=== PATIENT | female | born 1950 | race Caucasian/White ===

== ENCOUNTER 2016-11-01 12:55 | Observation (INO) | payer MEDICARE, BC ==
[2016-11-01] MEDS ORDERED: ASPIRIN 81 MG CHEW PO STA (13:59)
--- NOTE | 2016-11-01 14:45 | ED ---
General Adult HPI - General Chief complaint: Arrhythmia/Palpitations Stated complaint: Palpitations, ANJU Time Seen by Provider: 11/01/16 13:58 Source: patient, family, RN notes reviewed, old records reviewed Mode of arrival: wheelchair Limitations: no limitations - History of Present Illness Initial comments: 66-year-old female presenting for chest pain and palpitations. Patient states that she has had intermittent pains in her chest for the past few weeks. She' ll states she has chronic recurrence of a "fluttering" sensation. She states yesterday she was getting out of her truck and felt something pop in her chest and since then has had more frequent pain. She's also had worsening fluttering over the past 24 hours. She does have a history of CABG and 1999. She states that she had a stress test about 2 years ago which was normal. She does take a daily aspirin per day. She is not on what thinners. Left shortness of breath associated with chest pain. - Related Data Home Medications Medication Instructions Recorded Confirmed ALPRAZolam [Xanax] 0.25 mg PO TID PRN 05/08/14 11/01/16 Aspirin 325 mg PO HS 05/08/14 11/01/16 Atorvastatin Calcium [Lipitor] 40 mg PO HS 05/08/14 11/01/16 Colesevelam [Welchol] 1,875 mg PO BID 05/08/14 11/01/16 buPROPion HCL [Wellbutrin XL] 300 mg PO DAILY 05/08/14 11/01/16 Lisinopril-Hctz 20-12.5 mg 1 tab PO HS 11/01/16 11/01/16 [Zestoretic 20-12.5] Metoprolol Tartrate [Lopressor] 100 mg PO DAILY 11/01/16 11/01/16 Allergies Allergy/AdvReac Type Severity Reaction Status Date / Time No Known Allergies Allergy Verified 11/01/16 14:17 Review of Systems ROS Statement: Those systems with pertinent positive or pertinent negative responses have been documented in the HPI. Constitutional: No fevers. No chills. No change in appetite. No unexpected weight loss. Eyes: No visual changes. No eye pain. No sensitivity to light. HENT: No sinus pressure. No ear pain. No hearing changes. No epistaxis. No sore throat. Respiratory: No cough. Positive SOB. No wheezing. Cardiovascular: Positive chest pain. Positive palpitations. No lower extremity edema. Abdomen: No abdominal pain. No nausea. No vomiting. No diarrhea. Genitourinary: No dysuria. No hematuria. No difficulty urinating. No flank pain. Musculoskeletal: No injury. No back pain. No myalgias. Skin: No rash. No lesions. No lacerations. Neuro: No gross strength deficits. No LOC. No seizures. No headache. Psych: No confusion. No memory changes. No anxiety/depression. ROS Other: All systems not noted in ROS Statement are negative. Past Medical History Past Medical History: Coronary Artery Disease (CAD), Chest Pain / Angina, Hyperlipidemia, Hypertension, Osteoarthritis (OA) Additional Past Medical History / Comment(s): Past medical history significant for coronary artery disease as above also history of hypertension hyperlipidemia and osteoarthritis History of Any Multi-Drug Resistant Organisms: None Reported Past Surgical History: Back Surgery, Coronary Bypass/CABG, Heart Catheterization , Hysterectomy, Orthopedic Surgery Additional Past Surgical History / Comment(s): carpal tunnel. Bilateral total knee arthroplasty (left x2). Heart cath but no stent Past Anesthesia/Blood Transfusion Reactions: No Reported Reaction Past Psychological History: No Psychological Hx Reported, Depression Smoking Status: Former smoker Past Alcohol Use History: None Reported Past Drug Use History: None Reported - Past Family History Mother Family Medical History: Diabetes Mellitus Father Family Medical History: Myocardial Infarction ([place]) Additional Family Medical History / Comment(s): at 48 large hx of cardiac problems General Exam - General Exam Comments Initial Comments: General: Awake and Alert. No acute distress. Does not appear acutely ill. Obese. Eyes: KATHIE, EOM intact. No nystagmus. No scleral icterus. HENT: Atraumatic, normocephalic. Mucous membranes moist. Trachea midline. Neck: The neck is supple, there is no tenderness or JVD. Cardiovascular: Regular rate and rhythm. No murmur, rub, or gallop is appreciated. Distal pulses intact. Trace edema B/L LE. Respiratory: Lungs are clear to auscultation bilaterally. No wheezes, rales, rhonchi. No respiratory distress. Gastrointestinal: Soft, Nontender. No rebound or guarding. Non-distended. No masses or organomegaly noted. No CVA tenderness. Musculoskeletal: No tenderness. Normal ROM. No gross deformity. No strength deficits. Neurological: A&Ox3. CN II-XII grossly intact, There are no obvious motor or sensory deficits. Coordination appears grossly intact. Speech is normal. Skin: Skin is warm and dry and no rashes or lesions are noted. Psychiatric: Cooperative, appropriate mood & affect, normal judgment. Limitations: no limitations Course Vital Signs 11/01/16 11/01/16 13:05 16:42 Temperature 98.0 F 98.1 F Pulse Rate 68 60 Respiratory 18 16 Rate Blood Pressure 117/62 130/71 O2 Sat by Pulse 96 98 Oximetry EKG Findings - EKG Comments: EKG Findings:: 14:31. Normal sinus rhythm. Rate 63. UT 208. QRS 92. QT/QTC 418/427. Left axis deviation. Incomplete right bundle branch block. LVH. Nonspecific ST and T-wave abnormalities. Abnormal EKG. Similar to prior EKG 05/08/14. Medical Decision Making - Medical Decision Making 66-year-old female with history of multivessel CABG presenting for chest pain and palpitations. Patient without active chest pain on initial examination. Vitals are stable. Concern for possible ACS. Workup ordered. Patient took a full aspirin earlier today. Lab workup showing stable CBC, stable BMP. Initial troponin is negative. EKG does have significant changes concerning for possible cardiac ischemia although they are similar to prior EKG. Patient and were updated on labs and imaging. Discussed significant risk factors and recommendation for admission for further evaluation and cardiac consultation. They're agreeable to this. I called and discussed with Dr. Davies who is agreeable with plan for admission. 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 - Lab Data Result diagrams: 11/01/16 14:50 11/01/16 14:50 Lab Results 11/01/16 11/01/16 11/01/16 Range/Units 14:50 14:50 14:50 WBC 6.4 (3.8-10.6) k/uL RBC 4.37 (3.80-5.40) m/uL Hgb 13.6 (11.4-16.0) gm/dL Hct 40.7 (34.0-46.0) % MCV 93.1 (80.0-100.0) fL MCH 31.2 (25.0-35.0) pg MCHC 33.5 (31.0-37.0) g/dL RDW 12.5 (11.5-15.5) % Plt Count 240 (150-450) k/uL Neutrophils % 72 % Lymphocytes % 19 % Monocytes % 5 % Eosinophils % 2 % Basophils % 0 % Neutrophils # 4.6 (1.3-7.7) k/uL Lymphocytes # 1.2 (1.0-4.8) k/uL Monocytes # 0.3 (0-1.0) k/uL Eosinophils # 0.1 (0-0.7) k/uL Basophils # 0.0 (0-0.2) k/uL Sodium 138 (137-145) mmol/L Potassium 4.3 (3.5-5.1) mmol/L Chloride 106 (98-107) mmol/L Carbon Dioxide 25 (22-30) mmol/L Anion Gap 7 mmol/L BUN 19 H (7-17) mg/dL Creatinine 0.70 (0.52-1.04) mg/dL Est GFR (MDRD) Af Amer >60 (>60 ml/min/1.73 sqM) Est GFR (MDRD) Non-Af >60 (>60 ml/min/1.73 sqM) Glucose 136 H (74-99) mg/dL Calcium 9.5 (8.4-10.2) mg/dL Magnesium 1.8 (1.6-2.3) mg/dL CK-MB (CK-2) 0.6 (0.0-2.4) ng/mL Troponin I <0.012 (0.000-0.034) ng/mL - EKG Data -: EKG Interpreted by Or EKG shows normal: sinus rhythm Rate: normal When compared to previous EKG there are: no significant change Interpretation: no acute changes - Radiology Data Radiology results: report reviewed, image reviewed Disposition Clinical Impression: Chest pain, Palpitations, Hx of CABG, SOB (shortness of breath), Abnormal EKG Disposition: ADMITTED IP TO THIS HOSP Condition: Stable Referrals: Ed Healy MD [Primary Care Provider] - 1-2 days Decision to Admit Reason: Admit from EC
[2016-11-01 15:13] LABS: Basophils % (A) 0 %; CHCM 34.5; Eosinophils # (A) 0.1 k/uL (0-0.7); Eosinophils % (A) 2 %; HCT 40.7 % (34.0-46.0); HDW 2.61; HGB 13.6 gm/dL (11.4-16.0); Luc # (Auto) 0.11; Luc % (Auto) 2; Lymphocytes # (A) 1.2 k/uL (1.0-4.8); Lymphocytes % (A) 19 %; MCH 31.2 pg (25.0-35.0); MCHC 33.5 g/dL (31.0-37.0); MCV 93.1 fL (80.0-100.0); Mean Platelet Volume 7.1; Monocytes # (A) 0.3 k/uL (0-1.0); Monocytes % (A) 5 %; Neutrophils # (A) 4.6 k/uL (1.3-7.7); Neutrophils % (A) 72 %; RBC 4.37 m/uL (3.80-5.40); RDW 12.5 % (11.5-15.5); WBC 6.4 k/uL (3.8-10.6); WBC (Perox) 6.64
[2016-11-01 15:16] LABS: Anion Gap 7 mmol/L; Blood Urea Nitrogen 19 mg/dL (7-17); Calcium 9.5 mg/dL (8.4-10.2); Carbon Dioxide 25 mmol/L (22-30); Chloride 106 mmol/L (98-107); Glucose 136 mg/dL (74-99); Magnesium 1.8 mg/dL (1.6-2.3); Non-African American GFR(MDRD) >60 (>60 ml/min/1.73 sqM); Potassium 4.3 mmol/L (3.5-5.1); Sodium 138 mmol/L (137-145)
--- NOTE | 2016-11-01 15:18 | XR ---
EXAMINATION TYPE: XR chest 2V DATE OF EXAM: 11/01/2016 3:16 PM COMPARISON: May 08, 2014 HISTORY: Shortness of breath TECHNIQUE: Frontal and lateral views of the chest are obtained. FINDINGS: Scattered senescent parenchymal changes noted. Hyperinflation compatible with COPD. No evidence for infiltrate. No evidence for atelectasis. Heart size is stable. Mediastinal structures are stable and grossly unremarkable. No evidence for hilar prominence. Degenerative changes dorsal spine. IMPRESSION: 1. No evidence for acute pulmonary disease.
[2016-11-01 15:41] LABS: Creatine Kinase MB 0.6 ng/mL (0.0-2.4); Troponin I <0.012 ng/mL (0.000-0.034)
[2016-11-01] MEDS ORDERED: NITROGLYCERIN SL TABS 0.4 MG TAB SUBLINGUAL PRN (16:44)
[2016-11-01 21:50] LABS: Creatine Kinase 56 U/L (30-135)
[2016-11-01 22:03] LABS: Creatine Kinase MB 0.6 ng/mL (0.0-2.4); Troponin I <0.012 ng/mL (0.000-0.034)
[2016-11-01] MEDS ORDERED: LISINOPRIL-HCTZ 20-12.5 MG 1 EACH TAB PO SCH (23:30)
[2016-11-01] MEDS ORDERED: ATORVASTATIN 40 MG TAB PO SCH (23:30)
[2016-11-02] MEDS: HEPARIN SODIUM,PORCINE 5,000 UNIT/ML 1 ML VIAL SQ SCH ×2 (00:30→10:11)
[2016-11-02] MEDS: COLESEVELAM 625 MG TAB PO SCH ×2 (00:30→10:11)
[2016-11-02] MEDS: ALPRAZolam 0.25 MG TAB PO PRN ×2 (00:35→10:21)
[2016-11-02 03:25] LABS: Cholesterol 172 mg/dL (<200); HDL Cholesterol 55 mg/dL (40-60); Triglycerides 184 mg/dL (<150)
[2016-11-02 03:33] LABS: Creatine Kinase 52 U/L (30-135)
[2016-11-02 03:46] LABS: Creatine Kinase MB 0.6 ng/mL (0.0-2.4); Troponin I <0.012 ng/mL (0.000-0.034)
[2016-11-02 06:41] VITALS: PULSE 67
[2016-11-02] MEDS ORDERED: ASPIRIN 325 MG TAB PO SCH ×2 (09:00→21:00)
[2016-11-02] MEDS ORDERED: buPROPion XL 300 MG TAB.ER.24H PO SCH (09:00)
[2016-11-02] MEDS ORDERED: METOPROLOL TARTRATE 50 MG TAB PO SCH (09:00)
[2016-11-02 09:30] LABS: Basophils % (A) 1 %; CH 31.4; Eosinophils # (A) 0.2 k/uL (0-0.7); Eosinophils % (A) 3 %; HCT 39.5 % (34.0-46.0); HDW 2.46; HGB 13.2 gm/dL (11.4-16.0); Luc # (Auto) 0.13; Luc % (Auto) 2; Lymphocytes # (A) 2.4 k/uL (1.0-4.8); Lymphocytes % (A) 30 %; MCHC 33.4 g/dL (31.0-37.0); MCV 95.7 fL (80.0-100.0); Monocytes # (A) 0.3 k/uL (0-1.0); Monocytes % (A) 4 %; Neutrophils # (A) 4.7 k/uL (1.3-7.7); Neutrophils % (A) 60 %; RBC 4.13 m/uL (3.80-5.40); RDW 12.4 % (11.5-15.5); WBC 7.8 k/uL (3.8-10.6); WBC (Perox) 8.11
[2016-11-02 09:36] LABS: ALT 37 U/L (9-52); AST 18 U/L (14-36); Alkaline Phosphatase 74 U/L (38-126); Anion Gap 9 mmol/L; Blood Urea Nitrogen 18 mg/dL (7-17); Calcium 9.4 mg/dL (8.4-10.2); Carbon Dioxide 23 mmol/L (22-30); Chloride 107 mmol/L (98-107); Glucose 94 mg/dL (74-99); Non-African American GFR(MDRD) >60 (>60 ml/min/1.73 sqM); Potassium 3.6 mmol/L (3.5-5.1); Sodium 139 mmol/L (137-145); Total Bilirubin 0.5 mg/dL (0.2-1.3); Total Protein 6.1 g/dL (6.3-8.2)
--- NOTE | 2016-11-02 10:03 | CONS ---
DATE OF CONSULTATION: Dali Luong is a patient of Dr. Mildred Torres. She is a 66-year-old female who came in because she had fluttering in the neck once again. She has had this fluttering sensation in her neck for a long time. What scares her is that she feels that her heart is stopping at that time. She has no chest discomfort. She has not lost consciousness. Past history is significant for coronary artery disease. She had a 2 vessel bypass surgery several years back. Subsequently she had a coronary angiogram at [facility] and the vein graft to the second diagonal branch was totally occluded, the HOOD graft to the LAD was patent. The 2-D echo in the past has been normal. Her EKG, however, is abnormal and has been so even prior to surgery. I reviewed her ECGs from 2013 and from today. Her ECG shows sinus rhythm with normal [place] interval, with deep T wave inversions of the precordial leads. Past history of coronary artery disease, coronary artery bypass grafting, dyslipidemia and an abnormal ECG at baseline and recurrent palpitations for several years now but intermittent and she may go for months without palpitations. REVIEW OF SYSTEMS: No fever, chills, or rigors. No cough or expectoration. No nausea, vomiting, or diarrhea. No hematuria or dysuria. No strokes or seizures. No skin lesions or musculoskeletal complaints. Medications are reviewed and include metoprolol, lisinopril, atorvastatin, aspirin and Wellbutrin. ECG was reviewed. The QT interval is less than 460 ms. Labs are reviewed. Cardiac enzymes are normal. Hemoglobin is normal. Electrolytes are normal. Renal function is normal. On examination, her blood pressure is 112/65 mmHg, heart rate is in the 60s. Head and neck examination is normal. Heart sounds are normal. Lungs are clear on auscultation. Extremities are warm. No edema. IMPRESSION: 1. Recurrent fluttering that she feels in the neck and she feels that her heart is stopping. 2. Known coronary artery disease with coronary artery bypass grafting; HOOD to the LAD is patent, SVG to the diagonal is occluded. 3. Dyslipidemia. 4. Abnormal ECG with T wave inversions at baseline. Apparently, this was present even before her bypass surgery. SUGGEST: A 30-day event monitor and follow with Dr. Mildred Torres and follow up with me after the period of event monitoring.
--- NOTE | 2016-11-02 10:49 | P.HPIM ---
History of Present Illness H&P Date: 11/02/16 Chief Complaint: Heart fluttering This is a 66-year-old female with a known past medical history of coronary artery disease with previous CABG in 1998. She also has a history of hyperlipidemia and hypertension. She was a former smoker as well as some history of depression and anxiety. Last stress test was about 2 years ago was reportedly normal. Patient presents to the emergency room with complaints of heart fluttering and palpitations. Symptoms started yesterday. And continued to progress throughout the day and lasting longer in duration. She became concerned and presented to the emergency room for further evaluation and treatment. Cardiology was consulted. She was admitted to the observation floor. EKG had shown a normal sinus rhythm with an incomplete right bundle- branch block with ST and T-wave abnormality. Troponins were negative 3 sets. Chest x-ray was negative. Patient denies any chest pain. She does admit to having some shortness of breath during the fluttering episode. Denies any diaphoresis. Denies any nausea or vomiting bowel movement changes or urinary symptoms. Denies any fevers chills or sweats. Patient did try to cough to help alleviate the symptoms with no improvement. Patient does feel symptoms up into her neck. Also note that the patient has been under more stress. She did take a Xanax prior to coming to the ER and felt that it did help alleviate some of her symptoms. 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 History of Any Multi-Drug Resistant Organisms: None Reported Past Surgical History: Back Surgery, Coronary Bypass/CABG, Heart Catheterization , Hysterectomy, Orthopedic Surgery, Tonsillectomy Additional Past Surgical History / Comment(s): carpal tunnel, 2 VESSEL CABG 1998. Bilateral total knee arthroplasty (left DONE TWICE). Heart cath but no stent, 1 PERMANENT DENTAL IMPLANT/ Past Anesthesia/Blood Transfusion Reactions: No Reported Reaction Past Psychological History: Anxiety, Depression Additional Psychological History / Comment(s): STATES CURRENTLY HAS SOME MILD DEPRESSION (HATES WINTER AND HAS "BOARDERLINE VIT D LEVEL"), DENIES NAY THOUGHTS OF HARMING SELF. Smoking Status: Former smoker Past Alcohol Use History: None Reported Additional Past Alcohol Use History / Comment(s): STARTED SMOKING AT AGE 14, 1PPD, QUIT 1996 Past Drug Use History: None Reported - Past Family History Mother Family Medical History: Diabetes Mellitus Father Family Medical History: Myocardial Infarction ([place]) Additional Family Medical History / Comment(s): DAD at 48 large hx of cardiac problems .DADS [place] AT AGE 50 FROM [place] AND HIS FATHER AT AGE 36 FROM [place]. Brother(s) Family Medical History: Coronary Artery Disease (CAD) Additional Family Medical History / Comment(s): CABG Sister(s) Family Medical History: Coronary Artery Disease (CAD) Additional Family Medical History / Comment(s): QUAD CABG THEN WENT ON TO HAVE TOTAL OF 7 STENTS AFTERWARDS. Medications and Allergies Home Medications Medication Instructions Recorded Confirmed Type ALPRAZolam [Xanax] 0.25 mg PO TID PRN 05/08/14 11/01/16 History Aspirin 325 mg PO HS 05/08/14 11/01/16 History Atorvastatin Calcium [Lipitor] 40 mg PO HS 05/08/14 11/01/16 History Colesevelam [Welchol] 1,875 mg PO BID 05/08/14 11/01/16 History buPROPion HCL [Wellbutrin XL] 300 mg PO DAILY 05/08/14 11/01/16 History Lisinopril-Hctz 20-12.5 mg 1 tab PO HS 11/01/16 11/01/16 History [Zestoretic 20-12.5] Metoprolol Tartrate [Lopressor] 100 mg PO DAILY 11/01/16 11/01/16 History Allergies Allergy/AdvReac Type Severity Reaction Status Date / Time No Known Allergies Allergy Verified 11/01/16 14:17 Physical Exam Vitals: Vital Signs Temp Pulse Pulse Pulse Resp BP BP 11/02/16 07:55 98.1 F 67 18 112/65 11/02/16 04:00 67 65 16 110/64 11/02/16 00:00 65 16 120/62 11/01/16 21:55 18 11/01/16 21:10 98.2 F 70 16 144/95 11/01/16 19:52 97.6 F 63 18 140/88 11/01/16 18:45 97.8 F 56 L 16 150/82 11/01/16 18:04 98.0 F 61 16 132/76 Pulse Ox 11/02/16 07:55 96 11/02/16 04:00 94 L 11/02/16 00:00 95 11/01/16 21:55 11/01/16 21:10 92 L 11/01/16 19:52 99 11/01/16 18:45 98 11/01/16 18:04 96 Intake and Output 11/01/16 11/02/16 11/02/16 22:59 06:59 14:59 Intake Total 200 150 Balance 200 150 Intake: Oral 200 150 Other: Voiding Method Toilet Toilet # Voids 1 2 Head normocephalic Neck supple Lungs clear to auscultation bilaterally no wheezing or crackles Heart regular rate and rhythm S1-S2, no rub or gallop Abdomen is soft nontender nondistended positive bowel sounds no hepatosplenomegaly Extremities no edema Neuro alert and orientated to 3 Results CBC & Chem 7: 11/02/16 02:49 11/02/16 02:49 Labs: Abnormal Lab Results - Last 24 Hours (Table) 11/02/16 11/02/16 Range/Units 02:49 02:49 BUN 18 H (7-17) mg/dL Total Protein 6.1 L (6.3-8.2) g/dL Triglycerides 184 H (<150) mg/dL Assessment and Plan Plan: 1. Heart fluttering: I telemetry she's been in sinus rhythm. EKG had shown a normal sinus rhythm with some ST changes and T-wave inversion. Evaluated by cardiology. The recommending a 30 day event monitor. Patient's symptoms have resolved. Check TSH level. Electrolytes are normal. Troponins are negative 3 sets 2. History of generalized anxiety and depression continue with the Xanax as needed and the Wellbutrin 3. Essential hypertension: Continue current blood pressure medications. Blood pressure stable 4. Hyperlipidemia continue the WelChol DVT prophylaxis subcu heparin Anticipate discharge later this afternoon Time with Patient: Greater than 30 (Greater than 50% of the total time spent in counseling and coordination of care.I performed an examination of the patient and discussed their management with the physician Light Bulb Replacer. I have reviewed the Physician Light Bulb Replacer's notes and agree with the documented findings and plan of care)
[2016-11-02 12:14] VITALS: BP 135/76; RESP 16; TEMP 99.2
--- NOTE | 2016-11-02 13:19 | P.DS ---
Providers Date of admission: 11/01/16 16:47 Expected date of discharge: 11/02/16 Attending physician: Olya Davies Consults: Dr. Mirza Primary care physician: Ed Johnson [facility] Course: Discharge diagnosis 1. Heart fluttering and palpitations: telemetry she's been in sinus rhythm. EKG had shown a normal sinus rhythm with some ST changes and T-wave inversion. Evaluated by cardiology. The recommending a 30 day event monitor. Patient's symptoms have resolved. TSH level within normal limits. Electrolytes are normal. Troponins are negative 3 sets 2. History of generalized anxiety and depression continue with the Xanax as needed and the Wellbutrin 3. Essential hypertension: Continue current blood pressure medications. Blood pressure stable 4. Hyperlipidemia continue the [facility] course This is a 66-year-old female with a known past medical history of coronary artery disease with previous CABG in 1998. She also has a history of hyperlipidemia and hypertension. She was a former smoker as well as some history of depression and anxiety. Last stress test was about 2 years ago was reportedly normal. Patient presents to the emergency room with complaints of heart fluttering and palpitations. Symptoms started yesterday. And continued to progress throughout the day and lasting longer in duration. She became concerned and presented to the emergency room for further evaluation and treatment. Cardiology was consulted. She was admitted to the observation floor. EKG had shown a normal sinus rhythm with an incomplete right bundle- branch block with ST and T-wave abnormality. Troponins were negative 3 sets. Chest x-ray was negative. EKG reviewed by cardiology and they felt that it was similar to previous EKG. Patient will be discharged today. She'll be set up with a 30 day event monitor and follow up with cardiology outpatient. Patient has been asymptomatic since the emergency room. TSH level in the left lites are within normal range. Patient is stable for discharge and his been cleared by cardiology for discharge. Please refer to chart for further details. Patient Condition at Discharge: Stable Plan - Discharge Summary Discharge Medication List ALPRAZolam [Xanax] 0.25 mg PO TID PRN 05/08/14 [History] Aspirin 325 mg PO HS 05/08/14 [History] Atorvastatin Calcium [Lipitor] 40 mg PO HS 05/08/14 [History] Colesevelam [Welchol] 1,875 mg PO BID 05/08/14 [History] buPROPion HCL [Wellbutrin XL] 300 mg PO DAILY 05/08/14 [History] Lisinopril-Hctz 20-12.5 mg [Zestoretic 20-12.5] 1 tab PO HS 11/01/16 [History] Metoprolol Tartrate [Lopressor] 100 mg PO DAILY 11/01/16 [History] Follow up Appointment(s)/Referral(s): Jon Mirza MD [STAFF PHYSICIAN] - 6 Weeks Chavez Torres MD [STAFF PHYSICIAN] - 1 Week Ed Healy MD [Primary Care Provider] - 1 Week Activity/Diet/Wound Care/Special Instructions: Diet: cardiac Activity: as tolerated Discharge Disposition: HOME SELF-CARE
== END 2016-11-02 13:35 | disposition home or self-care (01) ==
LOC: EC 12:55 → 3OBS 16:47
PROVIDERS: ADMIT Internal Medicine; ATTEND Internal Medicine
DX: I49.8 Other specified cardiac arrhythmias (principal); R00.2 Palpitations; F41.1 Generalized anxiety disorder; F32.9 Major depressive disorder, single episode, unspecified; I10 Essential (primary) hypertension; I25.10 Atherosclerotic heart disease of native coronary artery without angina pectoris; E78.5 Hyperlipidemia, unspecified; I45.10 Unspecified right bundle-branch block; Z79.899 Other long term (current) drug therapy; Z87.891 Personal history of nicotine dependence; Z95.1 Presence of aortocoronary bypass graft; Z79.82 Long term (current) use of aspirin; R06.02 Shortness of breath
CPT/HCPCS: 93005; 80061; 80053; 80048; 36415; 84443; 82550 ×2; 82553 ×2; 83735; 84484 ×2; 85025 ×2; 71020; 99285; G0378 ×2; J1644; 96372

== ENCOUNTER → 2016-11-02 | Outpatient (CLI) | payer MEDICARE, BC ==
--- NOTE | 2016-11-02 15:05 | MR ---
EXAMINATION TYPE: MR shoulder RT wo con DATE OF EXAM: 11/02/2016 2:17 PM COMPARISON: NONE HISTORY: Pain in right shoulder. TECHNIQUE: Multiplanar, multisequence imaging of the right shoulder is performed without contrast. FINDINGS: Rotator Cuff: There is a 1.2 cm partial through thickness tear of the supraspinatus tendon near the i nsertion involving the anterior fibers. No retraction. There is increased signal at the insertion of the infraspinatus tendon along the undersurface compati ble with a partial non through thickness tear. Acromioclavicular Joint: Hypertrophic change of the AC joint is noted. There is mild mass effect upon the rotator cuff compatible with impingement. Glenohumeral Joint: There is a small amount of fluid within the glenohumeral joint. Inferior glenohum eral ligament is intact. Narrowing of the joint space noted. No erosive changes. Labrum: There is abnormal signal throughout the superior labrum compatible with tear. Biceps Tendon: Biceps tendon is situated within the bicipital groove. There is poor visualization of the intracapsular portion of the biceps tendon which demonstrates increased signal. Findings suspicio us for partial tear near the biceps anchor and intracapsular portion. Bone marrow signal: No focal abnormal marrow signal is appreciated. Other: Rounded area of abnormal signal within the glenohumeral joint compatible with loose body. IMPRESSION: 1. Partial through thickness tear distal margin supraspinatus tendon near the insertion measuring nelly roximately 1.2 cm. No retraction. 2. Tendinopathy and partial intrasubstance tear insertion infraspinatus tendon no retraction. 3. SLAP tear. 4. abnormal signal and thickening of the intracapsular portion of the biceps tendon extending the bic eps anchor compatible with partial tear. No retraction. 5. There is osteoarthritis of the glenohumeral joint with suspected loose body within the joint space and loss of cartilage.
== END | disposition home or self-care (01) ==
LOC: RADMRIMAIN 13:36
PROVIDERS: ATTEND Orthopaedic Surgery
DX: M75.111 Incomplete rotator cuff tear or rupture of right shoulder, not specified as traumatic (principal); S46.811A Strain of other muscles, fascia and tendons at shoulder and upper arm level, right arm, initial encounter; S43.431A Superior glenoid labrum lesion of right shoulder, initial encounter; M19.011 Primary osteoarthritis, right shoulder; M67.811 Other specified disorders of synovium, right shoulder

== ENCOUNTER → 2017-03-06 | Outpatient (CLI) | payer MEDICARE, BC ==
--- NOTE | 2017-03-07 13:53 | MM ---
Reason for exam: screening (asymptomatic). Last mammogram was performed 1 year and 1 month ago. History: Patient is postmenopausal. Took estrogen for 3 years. Physical Findings: A clinical breast exam by your physician is recommended on an annual basis and results should be correlated with mammographic findings. MG 3D Screening Mammo W/Cad Bilateral CC and MLO view(s) were taken. Prior study comparison: January 30, 2016, bilateral MG 3d screening mammo w/cad. January 04, 2014, bilateral digital screening mammo w/CAD. The breast tissue is heterogeneously dense. This may lower the sensitivity of mammography. Benign calcifications. There is no discrete abnormality. No significant changes when compared with prior studies. ASSESSMENT: Benign, BI-RAD 2 RECOMMENDATION: Routine screening mammogram of both breasts in 1 year.
== END | disposition home or self-care (01) ==
LOC: RADMAMWWP 14:49
PROVIDERS: ATTEND Internal Medicine
DX: Z12.31 Encounter for screening mammogram for malignant neoplasm of breast (principal)
CPT/HCPCS: 77063; G0202

== ENCOUNTER → 2017-07-12 | Day surgery (SDC) | payer MEDICARE, BC ==
[2017-07-10 14:58] VITALS: BMI 30.7
[~2017-07-12] MED LIST: LACTATED RINGERS 1,000 ML IV SCH; LIDOCAINE 1% 20 ML VIAL (10MG/ML) FOR IV START INTRADERMA ONE; LIDOCAINE 1% INJ 10MG/ML (20 ML MDV) ONE; PROPOFOL 10 MG/ML 20 ML VIAL IV ONE
[2017-07-12 12:01] VITALS: RESP 16; TEMP 97.3
--- NOTE | 2017-07-12 13:37 | P.PCN ---
Date of Procedure: 07/12/17 Procedure(s) Performed: BRIEF HISTORY: Patient is a 66-year-old pleasant white female, scheduled for an elective colonoscopy as a part of evaluation of chronic diarrhea for the last 6 months duration. She been having bowel movements anywhere from 4-5 a day which are loose to watery in consistency but last week she noticed small streaks of bright red blood in the stool. She is hence scheduled for colonoscopy to evaluate further. PROCEDURE PERFORMED: Colonoscopy with biopsy. PREOPERATIVE DIAGNOSIS: Chronic Diarrhea and intermittent rectal bleeding. IV sedation per Anesthesia. PROCEDURE: After informed consent was obtained, the patient, was brought into the endoscopy unit. IV sedation was administered by Anesthesia under continuous monitoring. Digital rectal examination was normal. Initially the Olympus CF- 160 flexible video colonoscope was then inserted in the rectum, gradually advanced into the sigmoid colon and further advancement was not possible because of acute angulation this area. The scope was removed and a pediatric colonoscope was then inserted in the rectum and gradually advanced into the cecum with [id number] difficulty. Careful examination was performed as the scope was gradually being withdrawn. Ileocecal valve and the appendiceal orifice were visualized and appeared normal. Prep was excellent. Mucosa of the cecum, ascending colon, transverse colon, descending colon, sigmoid colon, and rectum appeared normal. Random biopsies were done from the ascending, descending and sigmoid colons rule out Taye scope/collagenous colitis. Scattered sigmoid diverticulosis seen. Retroflexion was performed in the rectum and no lesions were seen. The patient tolerated the procedure well. IMPRESSION: Normal-appearing colon from rectum to cecum with no evidence of colitis or colorectal neoplasia Scattered sigmoid diverticulosis. RECOMMENDATIONS: Findings of this examination were discussed with the patient as well as her family. She was advised to follow with the biopsy results. In the meantime she will continue with Lomotil as needed.
[2017-07-12 14:09] VITALS: BP 134/84; PULSE 71
== END ==
LOC: ORWHC2ENDO 11:30
PROVIDERS: ATTEND Internal Medicine Gastroenterology
DX: K52.831 Collagenous colitis (principal); K57.30 Diverticulosis of large intestine without perforation or abscess without bleeding; K21.9 Gastro-esophageal reflux disease without esophagitis; I25.10 Atherosclerotic heart disease of native coronary artery without angina pectoris; I10 Essential (primary) hypertension; Z87.891 Personal history of nicotine dependence; Z95.1 Presence of aortocoronary bypass graft; E78.5 Hyperlipidemia, unspecified; Z79.82 Long term (current) use of aspirin; Z79.899 Other long term (current) drug therapy; Z88.1 Allergy status to other antibiotic agents; Z88.5 Allergy status to narcotic agent
CPT/HCPCS: 88305; 88313; 45380; J2001; J2704

== ENCOUNTER → 2018-10-14 | Outpatient (CLI) | payer MEDICARE, BC ==
--- NOTE | 2018-10-14 18:57 | BD ---
EXAMINATION TYPE: Axial Bone Density DATE OF EXAM: 10/14/2018 COMPARISON: 2006 CLINICAL HISTORY: 68-year-old female postmenopausal screening Height: 5'4 Weight: 159 FRAX RISK QUESTIONS: Secondary Osteoporosis: RISK FACTORS HISTORY OF: Postmenopausal woman: y MEDICATIONS: Additional Medications: blood pressure, anxiety, cholesterol, gout Additional History: EXAM MEASUREMENTS: Bone mineral densitometry was performed using the [employer] System. Bone mineral density as measured about the Lumbar spine is: ----- L1-L4(G/cm2): 1.504 T Score Values are as follows: ----- L2: 2.0 ----- L3: 4.0 ----- L4: 3.5 ----- L1-L4:2.7 Bone mineral density about the R hip (g/cm2): 0.928 Bone mineral density about the L hip (g/cm2): 0.930 T Score values are as follows: -----R Neck: -0.8 -----L Neck: -0.8 -----R Total: -0.9 -----L Total: -0.9 Bone mineral density has: Decreased -16.5% since study of: 03/21/2007 IMPRESSION: Normal (Values between +1 and -1 indicate normal bone mass). Consider repeating this study in 5 year s or sooner if there is some new clinical indication. NOTE: T-SCORE=SD OF THE YOUNG ADULT MEAN.
--- NOTE | 2018-10-21 16:49 | MM ---
Reason for exam: screening (asymptomatic). Last mammogram was performed 1 year and 7 months ago. History: Patient is postmenopausal. Took estrogen for 3 years. MG 3D Screening Mammo W/Cad Bilateral CC and MLO view(s) were taken. Prior study comparison: March 06, 2017, bilateral MG 3d screening mammo w/cad. January 30, 2016, bilateral MG 3d screening mammo w/cad. The breast tissue is heterogeneously dense. This may lower the sensitivity of mammography. Right superior posterior depth asymmetric density, likely represents a summation. There is a 5 mm upper outer quadrant focal asymmetry 3.5cm from the nipple in the right breast. ASSESSMENT: Incomplete: need additional imaging evaluation, BI-RAD 0 RECOMMENDATION: Special view mammogram of the right breast.
== END | disposition home or self-care (01) ==
LOC: RADMAMWWP 15:15
PROVIDERS: ATTEND Internal Medicine
DX: Z12.31 Encounter for screening mammogram for malignant neoplasm of breast (principal); N95.1 Menopausal and female climacteric states
CPT/HCPCS: 77063; 77067; 77080

== ENCOUNTER → 2018-11-11 | Outpatient (CLI) | payer MEDICARE, BC ==
--- NOTE | 2018-11-13 10:40 | MM ---
Reason for exam: additional evaluation requested from abnormal screening. Last mammogram was performed 1 month ago. History: Patient is postmenopausal. Took estrogen for 3 years. Physical Findings: Nurse did not find any significant physical abnormalities on exam. MG 3D Work Up W/Cad RT Spot compression CC, spot compression MLO, and LM view(s) were taken of the right breast. Prior study comparison: October 14, 2018, bilateral MG 3d screening mammo w/cad. March 06, 2017, bilateral MG 3d screening mammo w/cad. There are scattered fibroglandular densities. There is no discrete abnormality at two focal asymmetries. These results were verbally communicated with the patient and result sheet given to the patient on 11/11/18. ASSESSMENT: Probably benign, BI-RAD 3 RECOMMENDATION: Follow-up diagnostic mammogram of the right breast in 6 months.
== END | disposition home or self-care (01) ==
LOC: RADMAMWWP 13:22
PROVIDERS: ATTEND Internal Medicine
DX: R92.8 Other abnormal and inconclusive findings on diagnostic imaging of breast (principal)
CPT/HCPCS: 77065; G0279; 77061

== ENCOUNTER 2019-09-24 21:47 | Inpatient (IN) | payer MEDICARE, BC ==
[2019-09-24] MEDS ORDERED: SODIUM CHLORIDE 0.9% 500 ML 500 ML IV ONE (22:09)
[2019-09-24] MEDS ORDERED: ADENOSINE 3 MG/ML 2 ML VIAL IVP STA (22:11)
--- NOTE | 2019-09-24 22:19 | ED ---
General Adult HPI - General Chief complaint: Shortness of Breath Stated complaint: SOB Time Seen by Provider: 09/24/19 21:53 Source: patient, RN notes reviewed, old records reviewed Mode of arrival: ambulatory Limitations: no limitations - History of Present Illness Initial comments: 69-year-old female presenting for evaluation of palpitations and dyspnea. Patient denies associated chest pain. She has history of previous coronary artery bypass graft in 1998. She has history of hypertension hyperlipidemia. She follows regularly with cardiology. No history of arrhythmia. Denies nausea vomiting. States she ate dinner just prior to arrival. She states she has been stressed with preparation for the holidays and has been quite busy. No lower extremity pain or swelling.no chest pain, arm pain, neck pain. - Related Data Home Medications Medication Instructions Recorded Confirmed ALPRAZolam [Xanax] 0.25 mg PO BID 05/08/14 07/12/17 Aspirin 325 mg PO HS 05/08/14 07/12/17 Atorvastatin Calcium [Lipitor] 40 mg PO HS 05/08/14 07/12/17 Colesevelam [Welchol] 1,875 mg PO BID 05/08/14 07/12/17 buPROPion HCL [Wellbutrin XL] 300 mg PO QAM 05/08/14 07/12/17 Lisinopril-Hctz 20-12.5 mg 1 tab PO HS 11/01/16 07/12/17 [Zestoretic 20-12.5] Allergies Allergy/AdvReac Type Severity Reaction Status Date / Time metronidazole AdvReac Nausea & Verified 09/24/19 21:51 Vomiting tramadol AdvReac Nausea & Verified 09/24/19 21:51 Vomiting Review of Systems ROS Statement: Those systems with pertinent positive or pertinent negative responses have been documented in the HPI. ROS Other: All systems not noted in ROS Statement are negative. Past Medical History Past Medical History: Coronary Artery Disease (CAD), Chest Pain / Angina, Hyperlipidemia, Hypertension, Osteoarthritis (OA) Additional Past Medical History / Comment(s): FREQUENT DIARRHEA, HX SHINGLES History of Any Multi-Drug Resistant Organisms: None Reported Past Surgical History: Back Surgery, Coronary Bypass/CABG, Heart Catheterization, Hysterectomy, Joint Replacement, Orthopedic Surgery, Tonsillectomy Additional Past Surgical History / Comment(s): ZENON carpal tunnel, 2 VESSEL CABG 1998. Bilateral total knee arthroplasty (left DONE TWICE). Heart cath but no stent, 1 PERMANENT DENTAL IMPLANT Past Anesthesia/Blood Transfusion Reactions: No Reported Reaction Past Psychological History: Anxiety Smoking Status: Former smoker - Past Family History Mother Family Medical History: Diabetes Mellitus Father Family Medical History: Myocardial Infarction ([place]) Additional Family Medical History / Comment(s): DAD at 48 large hx of cardiac problems .DADS [place] AT AGE 50 FROM [place] AND HIS FATHER AT AGE 36 FROM [place]. Brother(s) Family Medical History: Coronary Artery Disease (CAD) Additional Family Medical History / Comment(s): CABG Sister(s) Family Medical History: Coronary Artery Disease (CAD) Additional Family Medical History / Comment(s): QUAD CABG THEN WENT ON TO HAVE TOTAL OF 7 STENTS AFTERWARDS. General Exam Limitations: no limitations General appearance: alert, in no apparent distress Head exam: Present: atraumatic, normocephalic Eye exam: Present: normal appearance, PERRL ENT exam: Present: normal exam Neck exam: Present: normal inspection. Absent: tenderness, meningismus Respiratory exam: Present: normal lung sounds bilaterally. Absent: respiratory distress, wheezes Cardiovascular Exam: Present: normal rhythm, tachycardia GI/Abdominal exam: Present: soft. Absent: distended, tenderness Extremities exam: Present: normal inspection, normal capillary refill. Absent: pedal edema Neurological exam: Present: alert, oriented X3, CN II-XII intact. Absent: motor sensory deficit Psychiatric exam: Present: normal affect, normal mood Skin exam: Present: warm, dry, intact. Absent: cyanosis, diaphoretic Course Vital Signs 09/24/19 09/24/19 09/24/19 21:48 22:14 22:29 Temperature 97.7 F Pulse Rate 151 H 87 Respiratory 20 18 Rate Blood Pressure 153/84 150/84 126/84 O2 Sat by Pulse 96 97 Oximetry 09/24/19 23:12 Temperature Pulse Rate 90 Respiratory 18 Rate Blood Pressure 121/72 O2 Sat by Pulse 96 Oximetry EKG Findings - EKG Comments: EKG Findings:: EKG performed at 2207, SVT, rate of 146, ST segment depression in the precordial leads as well as aVL, QRS duration 92, QTC 508. EKG obtained at 2212, normal sinus rhythm with ST segment depression in the lateral precordial leads, rate of 83, TN interval 208, QRS duration 94, QTC 404 Medical Decision Making - Medical Decision Making 69-year-old female presenting with palpitations, dyspnea. Patient found to be in SVT no history of arrhythmia. She converts with vagal maneuvers and IV fluids just prior to adenosine administration. She is initiated on metoprolol. She has MiraLAX N abnormalities including potassium 3.3, magnesium 1.7. Chest x-ray which is negative for acute cardiopulmonary disease. She remains in sinus rhythm on emergency department. She will be kept for telemetry, close observation and with cardiology consultation. I discussed case with Dr. Davies who will accept admission. - Lab Data Result diagrams: 09/24/19 21:56 09/24/19 21:56 Lab Results 09/24/19 09/24/19 09/24/19 Range/Units 21:56 21:56 21:56 WBC 8.0 (3.8-10.6) k/uL RBC 4.50 (3.80-5.40) m/uL Hgb 14.6 (11.4-16.0) gm/dL Hct 43.5 (34.0-46.0) % MCV 96.8 (80.0-100.0) fL MCH 32.5 (25.0-35.0) pg MCHC 33.5 (31.0-37.0) g/dL RDW 12.7 (11.5-15.5) % Plt Count 237 (150-450) k/uL Neutrophils % 68 % Lymphocytes % 25 % Monocytes % 4 % Eosinophils % 2 % Basophils % 1 % Neutrophils # 5.4 (1.3-7.7) k/uL Lymphocytes # 2.0 (1.0-4.8) k/uL Monocytes # 0.3 (0-1.0) k/uL Eosinophils # 0.1 (0-0.7) k/uL Basophils # 0.0 (0-0.2) k/uL PT 9.9 (9.0-12.0) sec INR 0.9 (<1.2) APTT 23.6 (22.0-30.0) sec Sodium 142 (137-145) mmol/L Potassium 3.3 L (3.5-5.1) mmol/L Chloride 108 H (98-107) mmol/L Carbon Dioxide 27 (22-30) mmol/L Anion Gap 7 mmol/L BUN 30 H (7-17) mg/dL Creatinine 0.93 (0.52-1.04) mg/dL Est GFR (CKD-EPI)AfAm 73 (>60 ml/min/1.73 sqM) Est GFR (CKD-EPI)NonAf 63 (>60 ml/min/1.73 sqM) Glucose 141 H (74-99) mg/dL Calcium 9.8 (8.4-10.2) mg/dL Magnesium 1.7 (1.6-2.3) mg/dL Total Bilirubin 0.5 (0.2-1.3) mg/dL AST 30 (14-36) U/L ALT 17 (4-34) U/L Alkaline Phosphatase 110 (38-126) U/L Troponin I (0.000-0.034) ng/mL Total Protein 7.5 (6.3-8.2) g/dL Albumin 4.8 (3.5-5.0) g/dL 09/24/19 Range/Units 21:56 WBC (3.8-10.6) k/uL RBC (3.80-5.40) m/uL Hgb (11.4-16.0) gm/dL Hct (34.0-46.0) % MCV (80.0-100.0) fL MCH (25.0-35.0) pg MCHC (31.0-37.0) g/dL RDW (11.5-15.5) % Plt Count (150-450) k/uL Neutrophils % % Lymphocytes % % Monocytes % % Eosinophils % % Basophils % % Neutrophils # (1.3-7.7) k/uL Lymphocytes # (1.0-4.8) k/uL Monocytes # (0-1.0) k/uL Eosinophils # (0-0.7) k/uL Basophils # (0-0.2) k/uL PT (9.0-12.0) sec INR (<1.2) APTT (22.0-30.0) sec Sodium (137-145) mmol/L Potassium (3.5-5.1) mmol/L Chloride (98-107) mmol/L Carbon Dioxide (22-30) mmol/L Anion Gap mmol/L BUN (7-17) mg/dL Creatinine (0.52-1.04) mg/dL Est GFR (CKD-EPI)AfAm (>60 ml/min/1.73 sqM) Est GFR (CKD-EPI)NonAf (>60 ml/min/1.73 sqM) Glucose (74-99) mg/dL Calcium (8.4-10.2) mg/dL Magnesium (1.6-2.3) mg/dL Total Bilirubin (0.2-1.3) mg/dL AST (14-36) U/L ALT (4-34) U/L Alkaline Phosphatase (38-126) U/L Troponin I 0.033 (0.000-0.034) ng/mL Total Protein (6.3-8.2) g/dL Albumin (3.5-5.0) g/dL Critical Care Time Critical Care Time: Yes Total Critical Care Time: 35 Disposition Clinical Impression: Hypokalemia, Abnormal EKG, SVT (supraventricular tachycardia) Disposition: ADMITTED IP TO THIS [facility] Condition: Stable Is patient prescribed a controlled substance at d/c from ED?: No Referrals: Ed Healy MD [Primary Care Provider] - 1-2 days Decision to Admit Reason: Admit from EC Decision Date: 09/24/19 Decision Time: 23:43
[2019-09-24 22:25] LABS: Basophils % (A) 1 %; Eosinophils # (A) 0.1 k/uL (0-0.7); Eosinophils % (A) 2 %; HCT 43.5 % (34.0-46.0); HGB 14.6 gm/dL (11.4-16.0); Lymphocytes % (A) 25 %; MCH 32.5 pg (25.0-35.0); MCHC 33.5 g/dL (31.0-37.0); MCV 96.8 fL (80.0-100.0); Mean Platelet Volume 7.5; Monocytes # (A) 0.3 k/uL (0-1.0); Monocytes % (A) 4 %; Neutrophils # (A) 5.4 k/uL (1.3-7.7); Neutrophils % (A) 68 %; Platelet Count 237 k/uL (150-450); RDW 12.7 % (11.5-15.5)
[2019-09-24] MEDS: METOPROLOL TARTRATE 25 MG TAB PO STA ×2 (22:29→22:40)
[2019-09-24 22:31] LABS: Albumin 4.8 g/dL (3.5-5.0); Calcium 9.8 mg/dL (8.4-10.2); INR 0.9 (<1.2); Magnesium 1.7 mg/dL (1.6-2.3); Partial Thromboplastin Time 23.6 sec (22.0-30.0); Potassium 3.3 mmol/L (3.5-5.1); Prothrombin Time 9.9 sec (9.0-12.0); Total Bilirubin 0.5 mg/dL (0.2-1.3); Total Protein 7.5 g/dL (6.3-8.2)
[2019-09-24] MEDS ORDERED: POTASSIUM CHLORIDE ER 20 MEQ TAB.ER PO STA (22:42)
[2019-09-24] MEDS ORDERED: MAGNESIUM SULFATE-D5W PMX 1 GM in DEXTROSE/WATER 1 100ML.BAG IVPB ONE (22:43)
--- NOTE | 2019-09-24 22:50 | XR ---
EXAM: XR Chest, 2 Views CLINICAL HISTORY: ITS.REASON XR Reason: dysrhythmia TECHNIQUE: Frontal and lateral views of the chest. COMPARISON: Chest radiograph on 11/01/2016 FINDINGS: Hardware: None. Lungs/pleura: Normal. No focal consolidation. No pleural effusion or pneumothorax. Heart/mediastinum: Median sternotomy and CABG changes. No cardiomegaly. Soft tissues: Unremarkable. Bones: No acute fracture. Degenerative changes of the acromioclavicular joints. Upper abdomen: Normal. IMPRESSION: No acute disease identified.
[2019-09-24] MEDS ORDERED: ACETAMINOPHEN TAB 325 MG TAB PO PRN (23:38)
[2019-09-24] MEDS ORDERED: NALOXONE 0.4 MG/ML 1 ML VIAL IV PRN (23:38)
[2019-09-24] MEDS ORDERED: ASPIRIN 325 MG TAB PO STA (23:39)
[2019-09-25] MEDS ORDERED: ASPIRIN 81 MG PO SCH (09:00)
--- NOTE | 2019-09-25 09:10 | P.CRDCN ---
History of Present Illness Consult date: 09/25/19 Requesting physician: Ed Healy Reason for Consult (text): Palpitations Chief complaint: Palpitations and shortness of breath History of present illness: This is a pleasant 69-year-old female who follows with Dr. Mirza in the office, she used to see Dr. Christina for years prior to that. She has history of coronary artery disease with prior bypass surgery in 1998 at which time she underwent a HOOD to the LAD and saphenous vein graft to the diuretic. She has had subsequent cardiac catheterizations after her bypass, it appears that the most recent was in 2012 which revealed a patent HOOD to the LAD circumflex RCA normal saphenous vein graft to the diagonal was closed proximally. Patient also has a history of hyperlipidemia, hypertension, she is a nonsmoker. Her home medications include Lipitor 40 mg daily, Xanax 0.25 twice a day, Wellbutrin, WelChol, aspirin, lisinopril hydrochlorothiazide and allopurinol. According to the patient, she had been out shopping yesterday, after arriving home she states that she felt extremely anxious. The symptoms of anxiety and palpitations continued to worsen, she states that she put her pajamas on and she was discovered to try and relax. She felt her heart racing extremely fast and became short of breath with it. She tried to take her pulse, but states that it was going to fast for her to count so she came to the em ergency room for further evaluation and treatment. Her initial EKG on presentation here showed a supraventricular tachycardia with a heart rate of 150, ST-T wave changes were noted in the anterior and lateral leads. Patient converted to normal sinus rhythm with a Yeaddiss numerous and IV fluids just prior to adenosine administration. She was initiated on metoprolol. Chest x-ray on presentation here was negative for any acute cardiopulmonary process. She remains in a normal sinus rhythm at this time. According to the patient, she does get these symptoms of anxiety and palpitations off and on for quite some time. Her blood pressure this morning is 110/70 with a heart rate of 54, 94% on room air. Blood cell count is normal, hemoglobin 14.6, platelet count 237. Sodium 142, potassium 3.3 on admission which has been replaced, BUN 30, creatinine 0.9, magnesium 1.7, troponin 0.033. Her conversion EKG shows a normal sinus rhythm with deep T wave inversion noted in the anterior lateral l ophelia. Upon review of prior EKGs it appears that the patient had similar changes in the past. Patient is currently on aspirin 162 mg daily which we will decrease to 81 mg daily, she is on Lipitor 40 mg daily, lisinopril hydrochlorothiazide, metoprolol 12-1/2 mg one tablet by mouth twice a day. Past Medical History Past Medical History: Coronary Artery Disease (CAD), Chest Pain / Angina, Hyperlipidemia, Hypertension, Osteoarthritis (OA) Additional Past Medical History / Comment(s): FREQUENT DIARRHEA, HX SHINGLES History of Any Multi-Drug Resistant Organisms: None Reported Past Surgical History: Back Surgery, Coronary Bypass/CABG, Heart Catheterization, Hysterectomy, Joint Replacement, Orthopedic Surgery, Tonsillectomy Additional Past Surgical History / Comment(s): ZENON carpal tunnel, 2 VESSEL CABG 1998. Bilateral total knee arthroplasty (left DONE TWICE). Heart cath but no stent, 1 PERMANENT DENTAL IMPLANT Past Anesthesia/Blood Transfusion Reactions: No Reported Reaction Past Psychological History: Anxiety Smoking Status: Former smoker - Past Family History Mother Family Medical History: Diabetes Mellitus Father Family Medical History: Myocardial Infarction ([place]) Additional Family Medical History / Comment(s): DAD at 48 large hx of cardiac problems .DADS [place] AT AGE 50 FROM [place] AND HIS FATHER AT AGE 36 FROM [place]. Brother(s) Family Medical History: Coronary Artery Disease (CAD) Additional Family Medical History / Comment(s): CABG Sister(s) Family Medical History: Coronary Artery Disease (CAD) Additional Family Medical History / Comment(s): QUAD CABG THEN WENT ON TO HAVE TOTAL OF 7 STENTS AFTERWARDS. Medications and Allergies Home Medications Medication Instructions Recorded Confirmed Type ALPRAZolam [Xanax] 0.25 mg PO BID 05/08/14 09/25/19 History Atorvastatin Calcium [Lipitor] 40 mg PO HS 05/08/14 09/25/19 History Colesevelam [Welchol] 1,875 mg PO BID 05/08/14 09/25/19 History buPROPion HCL [Wellbutrin XL] 300 mg PO QAM 05/08/14 09/25/19 History Allopurinol [Zyloprim] 300 mg PO DAILY 09/25/19 09/25/19 History Aspirin 162 mg PO DAILY 09/25/19 09/25/19 History Lisinopril-Hctz 10-12.5 mg 1 tab PO DAILY 09/25/19 09/25/19 History [Zestoretic 10-12.5] Allergies Allergy/AdvReac Type Severity Reaction Status Date / Time metronidazole AdvReac Nausea & Verified 09/24/19 23:40 Vomiting tramadol AdvReac Nausea & Verified 09/24/19 23:40 Vomiting Physical Exam Vitals: Vital Signs Temp Pulse Pulse Resp BP BP Pulse Ox 09/25/19 04:50 54 L 111/70 94 L 09/25/19 04:40 57 L 111/70 93 L 09/25/19 04:30 56 L 111/70 94 L 09/25/19 04:20 55 L 111/70 94 L 09/25/19 04:10 54 L 111/70 90 L 09/25/19 04:00 98.3 F 53 L 59 L 18 132/88 96 09/25/19 03:50 53 L 113/68 94 L 09/25/19 03:40 54 L 113/68 93 L 09/25/19 03:30 53 L 113/68 94 L 09/25/19 03:20 54 L 113/68 95 09/25/19 03:10 55 L 113/68 90 L 09/25/19 03:00 53 L 113/68 93 L 09/25/19 02:50 53 L 113/68 94 L 09/25/19 02:40 54 L 113/68 94 L 09/25/19 02:30 53 L 113/68 93 L 09/25/19 02:20 54 L 94 L 09/25/19 02:10 56 L 113/68 96 09/25/19 02:00 57 L 108/68 94 L 09/25/19 01:50 66 108/68 93 L 09/25/19 01:40 54 L 93 L 09/25/19 01:30 55 L 108/68 94 L 09/25/19 01:20 56 L 108/68 92 L 09/25/19 01:10 56 L 108/68 93 L 09/25/19 01:00 55 L 108/68 91 L 09/25/19 00:50 55 L 108/68 91 L 09/25/19 00:40 55 L 108/68 90 L 09/25/19 00:30 56 L 108/68 93 L 09/25/19 00:20 60 108/68 09/25/19 00:10 57 L 112/71 93 L 09/25/19 00:00 56 L 114/64 93 L 09/24/19 23:50 59 L 121/72 94 L 09/24/19 23:40 64 126/74 95 09/24/19 23:30 70 124/77 94 L 09/24/19 23:20 73 126/77 94 L 09/24/19 23:12 90 18 121/72 96 09/24/19 23:10 74 121/72 95 09/24/19 23:00 73 126/69 95 09/24/19 22:50 71 127/91 96 09/24/19 22:40 73 140/86 95 09/24/19 22:30 126/84 09/24/19 22:29 126/84 09/24/19 22:20 80 150/84 94 L 09/24/19 22:14 87 18 150/84 97 09/24/19 22:10 135 H 150/102 96 09/24/19 22:04 142 H 09/24/19 21:48 97.7 F 151 H 20 153/84 96 Intake and Output 09/24/19 09/25/19 09/25/19 22:59 06:59 14:59 Other: Weight 72.439 kg PHYSICAL EXAMINATION: GENERAL: 69-year-old female in no acute distress at the time of my examination HEENT: Head is atraumatic, normocephalic. Pupils equal, round. Sclera anicteric. Conjunctiva are clear. Mucous membranes of the mouth are moist. Neck is supple. There is no elevated jugular venous pressure. No carotid bruit is heard. HEART EXAMINATION: Heart S1, S2 normal. No murmur or gallop heard. CHEST EXAMINATION: Lungs are clear to auscultation and precussion. No chest wall tenderness is noted on palpation or with deep breathing. ABDOMEN: Soft, nontender. Bowel sounds are heard. No organomegaly noted. EXTREMITIES: 2+ peripheral pulses with no evidence of peripheral edema and no calf tenderness noted. NEUROLOGIC patient is awake, alert and oriented 3 . . Results 09/24/19 21:56 09/24/19 21:56 Cardiac Enzymes 09/24/19 09/24/19 Range/Units 21:56 21:56 AST 30 (14-36) U/L Troponin I 0.033 (0.000-0.034) ng/mL Coagulation 09/24/19 Range/Units 21:56 PT 9.9 (9.0-12.0) sec APTT 23.6 (22.0-30.0) sec CBC 09/24/19 Range/Units 21:56 WBC 8.0 (3.8-10.6) k/uL RBC 4.50 (3.80-5.40) m/uL Hgb 14.6 (11.4-16.0) gm/dL Hct 43.5 (34.0-46.0) % Plt Count 237 (150-450) k/uL Comprehensive Metabolic Panel 09/24/19 Range/Units 21:56 Sodium 142 (137-145) mmol/L Potassium 3.3 L (3.5-5.1) mmol/L Chloride 108 H (98-107) mmol/L Carbon Dioxide 27 (22-30) mmol/L BUN 30 H (7-17) mg/dL Creatinine 0.93 (0.52-1.04) mg/dL Glucose 141 H (74-99) mg/dL Calcium 9.8 (8.4-10.2) mg/dL AST 30 (14-36) U/L ALT 17 (4-34) U/L Alkaline Phosphatase 110 (38-126) U/L Total Protein 7.5 (6.3-8.2) g/dL Albumin 4.8 (3.5-5.0) g/dL Current Medications Generic Name Dose Route Start Last Admin Trade Name Freq PRN Reason Stop Dose Admin Acetaminophen 650 mg 09/24/19 23:38 Tylenol Tab PO Q6HR PRN Mild Pain or Fever > 100.5 Allopurinol 300 mg 09/25/19 09:00 Zyloprim PO DAILY HUSAM Alprazolam 0.25 mg 09/25/19 09:00 Xanax PO BID HUSAM Aspirin 162 mg 09/25/19 09:00 Aspirin PO DAILY [facility] Atorvastatin Calcium 40 mg 09/25/19 21:00 Lipitor PO HS HUSAM Bupropion HCl 300 mg 09/25/19 09:00 Wellbutrin Xl PO QAM HUSAM Lisinopril/HCTZ 1 each 09/26/19 09:00 Zestoretic 10-12.5 PO DAILY HUSAM Potassium Chloride/Sodium Chloride 1,000 mls @ 50 mls/hr 09/24/19 23:45 Ns-Kcl 20 Meq/L Iv Solution IV .Q20H HUSAM Metoprolol Tartrate 12.5 mg 09/25/19 09:00 Lopressor PO BID HUSAM Naloxone HCl 0.2 mg 09/24/19 23:38 Narcan IV Q2M PRN Opioid Reversal Intake and Output 09/24/19 09/25/19 09/25/19 22:59 06:59 14:59 Other: Weight 72.439 kg 09/24/19 21:56 09/24/19 21:56 EKG Interpretations (text) Initial EKG on presentation here showed a supraventricular tachycardia with T wave inversion noted in the anterior lateral leads, subsequent EKG shows a norm al sinus rhythm with T wave inversion persisting in the anterior lateral leads. Assessment and Plan Plan: Assessment and plan #1 supraventricular tachycardia, converted to normal sinus rhythm with vagal maneuver #2 known history of coronary artery disease with prior bypass surgery in 1998 with a HOOD to the LAD and saphenous vein graft to the diagonal #3 hypertension #4 hyperlipidemia #5 anxiety #6 hypokalemia, replaced Plan We will obtain an echocardiogram with Doppler study. Check a TSH level. Continue current medications including the addition of metoprolol. Further recommendations to follow. DNP note has been reviewed, I agree with a documented findings and plan of care. Patient was seen and examined.
[2019-09-25] MEDS: METOPROLOL TARTRATE 25 MG TAB PO SCH ×2 (09:27→21:51)
[2019-09-25] MEDS: ALPRAZolam 0.25 MG TAB PO SCH ×2 (09:27→21:51)
[2019-09-25] MEDS: 0.9% NACL WITH KCL 20 MEQ/L 1,000 ML IV SCH ×2 (09:29→21:50)
--- NOTE | 2019-09-25 11:10 | P.HPIM ---
History of Present Illness H&P Date: 09/25/19 Chief Complaint: Palpitations SVT This is a 69-year-old female patient of Dr. Healy. Patient presented with complaints of palpitations and dyspnea. Patient reports that she was at home when she felt like her heart was racing. Patient does reports she was under increased stress due to perforation for the holidays but denies any recent illness or fevers. Denies any increased swelling to lower extremities. Denies any diaphoresis nausea or vomiting. Patient reports that she checked it and pulse ox honoring machine and it was elevated she desires the ER. Upon arrival heart rate in the 140s and SVT. Chest x-ray performed showing no acute disease identified. Patient has a past medical history of coronary artery bypass graft surgery 1998. Patient reports that she's also had 3 previous cast since her open-heart with no intervention. Additional medical history includes essential hypertension and hyperlipidemia. Patient follows regularly with her production control analyst Dr. Mirza. In ER vasovagal maneuver was performed and patient converted out of SVT. Potassium also low at 3.3 replaced protocol. At this time cardiology services will be consulted. We'll check magnesium and potassium and TSH level. At this time patient is resting comfortably in bed. Heart rate in the 50s. Patient denies any chest pain or shortness of breath. Patient denies nausea vomiting or diarrhea. Patient denies any urinary burning or frequency Review of Systems Please refer to HPI otherwise unremarkable Past Medical History Past Medical History: Coronary Artery Disease (CAD), Chest Pain / Angina, Hyperlipidemia, Hypertension, Osteoarthritis (OA) Additional Past Medical History / Comment(s): Pt states in her 30s she was told she had an irregular heart beat but does not recall name, IBS, colitis, arthritis bilateral wrists/ankles and back, diverticular disease, tinnitis bilaterally, UTI, elevated uric acid level with gout in L great toe/L hand. History of Any Multi-Drug Resistant Organisms: None Reported Past Surgical History: Back Surgery, Coronary Bypass/CABG, Heart Catheterization, Hysterectomy, Joint Replacement, Orthopedic Surgery, Tonsillectomy Additional Past Surgical History / Comment(s): 1998 CABG 2 vessel, bilateral carpal tunnel releases, bilateral total knees with L side done twice, one dental implant, colonoscopy. Past Anesthesia/Blood Transfusion Reactions: No Reported Reaction Smoking Status: Former smoker - Past Family History Mother Family Medical History: Diabetes Mellitus Father Family Medical History: Myocardial Infarction ([place]) Additional Family Medical History / Comment(s): DAD at 48 of cardiac problems . DADS [place] AT AGE 50 FROM [place] AND HIS FATHER AT AGE 36 FROM [place]. Brother(s) Family Medical History: Coronary Artery Disease (CAD) Additional Family Medical History / Comment(s): CABG Sister(s) Family Medical History: Coronary Artery Disease (CAD) Additional Family Medical History / Comment(s): QUAD CABG THEN WENT ON TO HAVE TOTAL OF 7 STENTS AFTERWARDS. Medications and Allergies Home Medications Medication Instructions Recorded Confirmed Type ALPRAZolam [Xanax] 0.25 mg PO BID 05/08/14 09/25/19 History Atorvastatin Calcium [Lipitor] 40 mg PO HS 05/08/14 09/25/19 History Colesevelam [Welchol] 1,875 mg PO BID 05/08/14 09/25/19 History buPROPion HCL [Wellbutrin XL] 300 mg PO QAM 05/08/14 09/25/19 History Allopurinol [Zyloprim] 300 mg PO DAILY 09/25/19 09/25/19 History Aspirin 162 mg PO DAILY 09/25/19 09/25/19 History Lisinopril-Hctz 10-12.5 mg 1 tab PO DAILY 09/25/19 09/25/19 History [Zestoretic 10-12.5] Allergies Allergy/AdvReac Type Severity Reaction Status Date / Time metronidazole AdvReac Nausea & Verified 09/24/19 23:40 Vomiting tramadol AdvReac Nausea & Verified 09/24/19 23:40 Vomiting Physical Exam Vitals: Vital Signs Temp Pulse Pulse Resp BP BP Pulse Ox 09/25/19 08:00 98.3 F 59 L 16 132/88 96 09/25/19 04:50 54 L 111/70 94 L 09/25/19 04:40 57 L 111/70 93 L 09/25/19 04:30 56 L 111/70 94 L 09/25/19 04:20 55 L 111/70 94 L 09/25/19 04:10 54 L 111/70 90 L 09/25/19 04:00 53 L 90 L 09/25/19 03:50 53 L 113/68 94 L 09/25/19 03:40 54 L 113/68 93 L 09/25/19 03:30 53 L 113/68 94 L 09/25/19 03:20 54 L 113/68 95 09/25/19 03:10 55 L 113/68 90 L 09/25/19 03:00 53 L 113/68 93 L 09/25/19 02:50 53 L 113/68 94 L 09/25/19 02:40 54 L 113/68 94 L 09/25/19 02:30 53 L 113/68 93 L 09/25/19 02:20 54 L 94 L 09/25/19 02:10 56 L 113/68 96 09/25/19 02:00 57 L 108/68 94 L 09/25/19 01:50 66 108/68 93 L 09/25/19 01:40 54 L 93 L 09/25/19 01:30 55 L 108/68 94 L 09/25/19 01:20 56 L 108/68 92 L 09/25/19 01:10 56 L 108/68 93 L 09/25/19 01:00 55 L 108/68 91 L 09/25/19 00:50 55 L 108/68 91 L 09/25/19 00:40 55 L 108/68 90 L 09/25/19 00:30 56 L 108/68 93 L 09/25/19 00:20 60 108/68 09/25/19 00:10 57 L 112/71 93 L 09/25/19 00:00 56 L 114/64 93 L 09/24/19 23:50 59 L 121/72 94 L 09/24/19 23:40 64 126/74 95 09/24/19 23:30 70 124/77 94 L 09/24/19 23:20 73 126/77 94 L 09/24/19 23:12 90 18 121/72 96 09/24/19 23:10 74 121/72 95 09/24/19 23:00 73 126/69 95 09/24/19 22:50 71 127/91 96 09/24/19 22:40 73 140/86 95 09/24/19 22:30 126/84 09/24/19 22:29 126/84 09/24/19 22:20 80 150/84 94 L 09/24/19 22:14 87 18 150/84 97 09/24/19 22:10 135 H 150/102 96 09/24/19 22:04 142 H 09/24/19 21:48 97.7 F 151 H 20 153/84 96 Intake and Output 09/24/19 09/25/19 09/25/19 22:59 06:59 14:59 Other: Weight 72.439 kg 72.439 kg Head normocephalic Neck supple Lungs clear to auscultation bilaterally no wheezing or crackles Heart regular rate and rhythm S1-S2, no rub or gallop Abdomen is soft nontender nondistended positive bowel sounds no hepatosplenomegaly Extremities no edema Neuro alert and orientated to 3 Results CBC & Chem 7: 09/24/19 21:56 09/24/19 21:56 Labs: Abnormal Lab Results - Last 24 Hours (Table) 09/24/19 Range/Units 21:56 Potassium 3.3 L (3.5-5.1) mmol/L Chloride 108 H (98-107) mmol/L BUN 30 H (7-17) mg/dL Glucose 141 H (74-99) mg/dL Thrombosis Risk Factor Assmnt - Choose All That Apply Any of the Below Risk Factors Present?: Yes Each Factor Represents 1 point: Obesity (BMI >25) Other Risk Factors: Yes Each Risk Factor Represents 2 Points: Age 61-74 years Other congenital or acquired thrombophilia - If yes, enter type in comment: No Thrombosis Risk Factor Assessment Total Risk Factor Score: 3 Thrombosis Risk Factor Assessment Level: Moderate Risk Assessment and Plan Assessment: 1. Dyspnea and palpitation secondary to SVT. Patient was converted to sinus rhythm using a vasovagal maneuver per ER. Cardiology services have been consulted 2-D echo has been ordered TSH magnesium and potassium levels have been ordered. She was given Lopressor started on Lopressor 2.5 mg by mouth twice a day. 2. Hypokalemia. Potassium 3.3 replaced per protocol will recheck level and replace if needed 3. History of essential hypertension. Home meds resumed 4. History of anxiety maintained on Xanax 5. History of coronary artery bypass graft surgery in 1998. Patient follows regularly with production control analyst reports that she's had previous cardiac cath but no intervention 6. History of IBS DVT prophylaxis heparin. GI prophylaxis Pepcid Cardiology consult placed Repeat Electrolyte ordered Time with Patient: Greater than 30 (Greater than 60% of the total time spent in counseling and coordination of care. I performed an examination of the patient and discussed their management with the Nurse Practitioner. I have reviewed the Nurse Practitioner's notes and agree with the documented findings and plan of care)
--- NOTE | 2019-09-25 11:54 | ECHOF ---
Referral Reason:svt MEASUREMENTS -------- HEIGHT: 162.6 cm WEIGHT: 72.1 kg BP: 111/70 RVIDd: 4.3 cm (< 3.3) IVSd: 0.7 cm (0.6 - 1.1) LVIDd: 4.2 cm (3.9 - 5.3) LVPWd: 0.9 cm (0.6 - 1.1) IVSs: 1.3 cm LVIDs: 2.9 cm LVPWs: 1.4 cm LAESV Index (A-L): 27.97 ml/m Ao Diam: 3.1 cm (2.0 - 3.7) AV Cusp: 1.7 cm (1.5 - 2.6) LA Diam: 3.5 cm (2.7 - 3.8) MV EXCURSION: 15.965 mm (> 18.000) MV EF SLOPE: 87 mm/s (70 - 150) EPSS: 0.6 cm MV E [place]: 0.47 m/s MV DecT: 212 ms MV A [place]: 0.78 m/s MV E/A Ratio: 0.60 RAP: 15.00 mmHg RVSP: 35.29 mmHg TAPSE: 23.60 mm FINDINGS -------- Sinus rhythm. This was a technically good study. Previous CABG The left ventricular size is normal. Left ventricular wall thickness is normal. Overall left vent ricular systolic function is low-normal with, an EF between 50 - 55 %. The right ventricle is severely enlarged. The left atrial size is normal. Normal LA size by volume 22+/-6 ml/m2. RA appears enlarged. Aneurysmal Interatrial septum. The aortic valve is trileaflet and appears structurally normal. The mitral valve is normal. Mild mitral regurgitation is present. The tricuspid valve appears structurally normal. Moderate to severe tricuspid regurgitation present . There is mild pulmonary hypertension. The right ventricular systolic pressure, as measured by D oppler, is 35.29mmHg. There is no pulmonic regurgitation present. The aortic root size is normal. The inferior vena cava is mildly dilated. There is no pericardial effusion. CONCLUSIONS -------- 1. Sinus rhythm. 2. This was a technically good study. 3. Previous CABG 4. The left ventricular size is normal. 5. Left ventricular wall thickness is normal. 6. Overall left ventricular systolic function is low-normal with, an EF between 50 - 55 %. 7. The right ventricle is severely enlarged. 8. The left atrial size is normal. 9. Normal LA size by volume 22+/-6 ml/m2. 10. RA appears enlarged. 11. Aneurysmal Interatrial septum. 12. The aortic valve is trileaflet and appears structurally normal. 13. The mitral valve is normal. 14. Mild mitral regurgitation is present. 15. The tricuspid valve appears structurally normal. 16. Moderate to severe tricuspid regurgitation present. 17. There is mild pulmonary hypertension. 18. The right ventricular systolic pressure, as measured by Doppler, is 35.29mmHg. 19. There is no pulmonic regurgitation present. 20. The aortic root size is normal. 21. The inferior vena cava is mildly dilated. 22. There is no pericardial effusion. MATCHING MACHINE OPERATOR: Nahomy Samuel RDCS
[2019-09-25 12:03] VITALS: RESP 18
[2019-09-25 12:35] LABS: Basophils % (A) 0 %; Eosinophils # (A) 0.1 k/uL (0-0.7); Eosinophils % (A) 1 %; HCT 36.3 % (34.0-46.0); HGB 12.2 gm/dL (11.4-16.0); Lymphocytes # (A) 1.2 k/uL (1.0-4.8); Lymphocytes % (A) 19 %; MCH 32.8 pg (25.0-35.0); MCHC 33.6 g/dL (31.0-37.0); MCV 97.6 fL (80.0-100.0); Mean Platelet Volume 7.7; Monocytes # (A) 0.3 k/uL (0-1.0); Monocytes % (A) 5 %; Neutrophils # (A) 4.5 k/uL (1.3-7.7); Neutrophils % (A) 73 %; Platelet Count 191 k/uL (150-450); RBC 3.72 m/uL (3.80-5.40); RDW 12.8 % (11.5-15.5); WBC 6.2 k/uL (3.8-10.6)
[2019-09-25 12:42] LABS: Albumin 3.5 g/dL (3.5-5.0); Potassium 4.3 mmol/L (3.5-5.1); Total Bilirubin 0.6 mg/dL (0.2-1.3); Total Protein 5.8 g/dL (6.3-8.2)
[2019-09-25] MEDS: ALLOPURINOL 300 MG TAB PO SCH (13:37)
[2019-09-25] MEDS: buPROPion XL 300 MG TAB.ER.24H PO SCH (13:38)
[2019-09-25 20:31] LABS: Hemoglobin A1C 5.3 % (4.0-6.0)
[2019-09-25] MEDS ORDERED: ATORVASTATIN 40 MG TAB PO SCH (21:00)
[2019-09-25] MEDS: HEPARIN SODIUM,PORCINE 5,000 UNIT/ML 1 ML VIAL SQ SCH (21:51)
[2019-09-26] MEDS: 0.9% NACL WITH KCL 20 MEQ/L 1,000 ML IV SCH (04:01)
[2019-09-26 07:03] LABS: Basophils % (A) 1 %; Eosinophils # (A) 0.1 k/uL (0-0.7); Eosinophils % (A) 2 %; HCT 38.1 % (34.0-46.0); HGB 12.6 gm/dL (11.4-16.0); Lymphocytes # (A) 1.7 k/uL (1.0-4.8); Lymphocytes % (A) 31 %; MCH 32.3 pg (25.0-35.0); MCV 97.7 fL (80.0-100.0); Mean Platelet Volume 7.6; Monocytes # (A) 0.2 k/uL (0-1.0); Monocytes % (A) 4 %; Neutrophils # (A) 3.3 k/uL (1.3-7.7); Neutrophils % (A) 60 %; Platelet Count 190 k/uL (150-450); RDW 12.9 % (11.5-15.5); WBC 5.5 k/uL (3.8-10.6)
[2019-09-26 07:14] LABS: ALT 13 U/L (4-34); AST 21 U/L (14-36); African American GFR (CKD) >90 (>60 ml/min/1.73 sqM); Albumin 3.6 g/dL (3.5-5.0); Alkaline Phosphatase 53 U/L (38-126); Anion Gap 2 mmol/L; Blood Urea Nitrogen 20 mg/dL (7-17); Calcium 9.1 mg/dL (8.4-10.2); Carbon Dioxide 28 mmol/L (22-30); Chloride 112 mmol/L (98-107); Glucose 87 mg/dL (74-99); Non-African American GFR(CKD) 81 (>60 ml/min/1.73 sqM); Potassium 4.3 mmol/L (3.5-5.1); Sodium 142 mmol/L (137-145); Total Bilirubin 0.6 mg/dL (0.2-1.3); Total Protein 5.9 g/dL (6.3-8.2)
[2019-09-26] MEDS: METOPROLOL TARTRATE 25 MG TAB PO SCH (08:17)
[2019-09-26] MEDS: ALLOPURINOL 300 MG TAB PO SCH (08:17)
[2019-09-26] MEDS: ALPRAZolam 0.25 MG TAB PO SCH (08:17)
[2019-09-26] MEDS: buPROPion XL 300 MG TAB.ER.24H PO SCH (08:18)
[2019-09-26] MEDS: HEPARIN SODIUM,PORCINE 5,000 UNIT/ML 1 ML VIAL SQ SCH (08:18)
[2019-09-26] MEDS ORDERED: LISINOPRIL-HCTZ 10-12.5 MG 1 EACH TAB PO SCH (09:00)
[2019-09-26] MEDS ORDERED: ASPIRIN 81 MG PO SCH (09:00)
[2019-09-26] MEDS ORDERED: FAMOTIDINE 20 MG TAB PO SCH (09:00)
[2019-09-26 10:08] VITALS: TEMP 97
[2019-09-26 11:55] VITALS: BP 110/62; PULSE 54
--- NOTE | 2019-09-26 13:40 | P.PN ---
Subjective This is a pleasant 69-year-old female past medical history significant for coronary artery disease status post bypass grafting, hypertension and dyslipidemia. She follows in the office with Dr. Melendez. She is seen and examined sitting up in the chair in no acute distress. She denies symptoms of chest discomfort, shortness of breath, dizziness or palpitations. She's had no further episodes of SVT since coming to the hospital. Telemetry tracings reveal normal sinus mechanism. Echocardiogram obtained revealed preserved LV systolic function with ejection fraction 50-55%, mild MR, moderate to severe TR and mild pulmonary hypertension with an RVSP of 35 mmHg. Laboratory data reviewed, CBC unremarkable, sodium 142, potassium 4.3, creatinine 0.76, TSH 1.77. She was initiated on Lopressor yesterday. GENERAL: Well-appearing, well-nourished and in no acute distress. NECK: Supple without JVD or thyromegaly. LUNGS: Breath sounds clear to auscultation bilaterally. Respiration equal and unlabored. No wheezes, rales or rhonchi. HEART: Regular rate and rhythm without murmurs, rubs or gallops. S1 and S2 heard. EXTREMITIES: Normal range of motion, no edema. No clubbing or cyanosis. Peripheral pulses intact. ASSESSMENT Supraventricular tachycardia, spontaneously converted to sinus mechanism with vagal maneuver History of coronary artery disease status post bypass grafting Hypertension Dyslipidemia Hypokalemia, replaced PLAN Stable for discharge from a cardiac perspective. Continue Lopressor as previously ordered. Follow-up in the office with Dr. Mirza. Nurse Practitioner note has been reviewed, I agree with a documented findings and plan of care. Patient was seen and examined. Objective - Vital Signs Vital signs: Vital Signs Temp 97 F L 09/26/19 09:00 Pulse 54 L 09/26/19 11:51 Resp 18 09/26/19 11:51 BP 110/62 09/26/19 11:51 Pulse Ox 95 09/26/19 11:51 Intake & Output 09/25/19 09/26/19 09/26/19 18:59 06:59 18:59 Weight 72.439 kg 74.1 kg Other: Voiding Method Toilet # Voids 1 1 - Labs CBC & Chem 7: 09/26/19 06:34 09/26/19 06:34 Labs: Abnormal Lab Results - Last 24 Hours (Table) 09/26/19 Range/Units 06:34 Chloride 112 H (98-107) mmol/L BUN 20 H (7-17) mg/dL Total Protein 5.9 L (6.3-8.2) g/dL
--- NOTE | 2019-09-26 14:53 | P.DS ---
Providers Date of admission: 09/24/19 23:39 Expected date of discharge: 09/26/19 Attending physician: Olya Davies Consults: 09/24/19 23:39 Consult Physician Routine Consulting Provider: Jon Mirza Consult Reason/Comments: SVT Do you want consulting provider notified?: Yes Primary care physician: [facility] Course: Diagnoses on discharge: 1. Dyspnea and palpitation secondary to SVT. Patient was converted to sinus rhythm using a vasovagal maneuver per ER. Cardiology services have been consulted 2-D echo has been ordered TSH magnesium and potassium levels have been ordered. She was given Lopressor started on Lopressor 2.5 mg by mouth twice a day. 2. Hypokalemia. Potassium 3.3 replaced per protocol will recheck level and re place if needed 3. History of essential hypertension. Home meds resumed 4. History of anxiety maintained on Xanax 5. History of coronary artery bypass graft surgery in 1998. Patient follows re gularly with metalworker reports that she's had previous cardiac cath but no intervention 6. History of IBS Hospital course: This is a 69-year-old female patient of Dr. Healy. Patient presented with complaints of palpitations and dyspnea. Patient reports that she was at home when she felt like her heart was racing. Patient does reports she was under increased stress due to perforation for the holidays but denies any recent illness or fevers. Denies any increased swelling to lower extremities. Denies any diaphoresis nausea or vomiting. Patient reports that she checked it and pulse ox honoring machine and it was elevated she desires the ER. Upon arrival heart rate in the 140s and SVT. Chest x-ray performed showing no acute disease identified. Patient has a past medical history of coronary artery bypass graft surgery 1998. Patient reports that she's also had 3 previous cast since her open-heart with no intervention. Additional medical history includes essential hypertension and hyperlipidemia. Patient follows regularly with her metalworker Dr. Mirza. In ER vasovagal maneuver was performed and patient converted out of SVT. Potassium also low at 3.3 replaced protocol. At this time cardiology services will be consulted. We'll check magnesium and potassium and TSH level. At this time patient is resting comfortably in bed. Heart rate in the 50s. Patient denies any chest pain or shortness of breath. Patient denies nausea vomiting or diarrhea. Patient denies any urinary burning or frequency. On 09/26/2019 patient was seen and examined on the telemetry floor she is asymptomatic there is no chest pain no shortness of breath and no palpitation, she was evaluated by cardiology and was cleared for discharge, metoprolol 12.5 mg by mouth twice daily was added to her regimen. Patient was stable and was eager to go home she was given a prescription for metoprolol and was discharged home, she will follow his Dr. Mirza metalworker for EP study and possible ablation in the next 2 weeks. She was told to return to emergency room if having any new episodes of palpitation or any symptoms of dizziness chest pain or shortness of breath. Patient Condition at Discharge: Stable Plan - Discharge Summary Discharge Rx Participant: No New Discharge Prescriptions: New Metoprolol Tartrate [Lopressor] 12.5 mg PO BID tab Metoprolol Tartrate [Lopressor] 12.5 mg PO BID #60 tab Continue Atorvastatin Calcium [Lipitor] 40 mg PO HS ALPRAZolam [Xanax] 0.25 mg PO BID buPROPion HCL [Wellbutrin XL] 300 mg PO QAM Colesevelam [Welchol] 1,875 mg PO BID Lisinopril-Hctz 10-12.5 mg [Zestoretic 10-12.5] 1 tab PO DAILY Aspirin 162 mg PO DAILY Allopurinol [Zyloprim] 300 mg PO DAILY Discharge Medication List ALPRAZolam [Xanax] 0.25 mg PO BID 05/08/14 [History] Atorvastatin Calcium [Lipitor] 40 mg PO HS 05/08/14 [History] Colesevelam [Welchol] 1,875 mg PO BID 05/08/14 [History] buPROPion HCL [Wellbutrin XL] 300 mg PO QAM 05/08/14 [History] Allopurinol [Zyloprim] 300 mg PO DAILY 09/25/19 [History] Aspirin 162 mg PO DAILY 09/25/19 [History] Lisinopril-Hctz 10-12.5 mg [Zestoretic 10-12.5] 1 tab PO DAILY 09/25/19 [History] Metoprolol Tartrate [Lopressor] 12.5 mg PO BID tab 09/26/19 [Rx] Metoprolol Tartrate [Lopressor] 12.5 mg PO BID #60 tab 09/26/19 [Rx] Follow up Appointment(s)/Referral(s): Jon Mirza MD [STAFF PHYSICIAN] - 2 Weeks (please call office saturday to make follow up appt. ) Ed Healy MD [STAFF PHYSICIAN] - 1-2 days (please call office saturday to make follow up appt) Patient Instructions/Handouts: Supraventricular Tachycardia (DC), Hypokalemia (DC) Discharge Disposition: HOME SELF-CARE
== END 2019-09-26 13:46 | disposition home or self-care (01) | DRG 310 ==
LOC: EC 21:47 → 3SCARD 23:39
PROVIDERS: ADMIT Internal Medicine; ATTEND Internal Medicine
DX: I47.1 Supraventricular tachycardia (principal); I10 Essential (primary) hypertension; E78.5 Hyperlipidemia, unspecified; I25.10 Atherosclerotic heart disease of native coronary artery without angina pectoris; K58.9 Irritable bowel syndrome, unspecified; M15.9 Polyosteoarthritis, unspecified; E87.6 Hypokalemia; M10.9 Gout, unspecified; B02.9 Zoster without complications; F41.9 Anxiety disorder, unspecified; I27.20 Pulmonary hypertension, unspecified; Z96.653 Presence of artificial knee joint, bilateral; Z95.1 Presence of aortocoronary bypass graft; Z79.899 Other long term (current) drug therapy; Z79.82 Long term (current) use of aspirin; Z87.440 Personal history of urinary (tract) infections; Z87.891 Personal history of nicotine dependence; Z83.3 Family history of diabetes mellitus; Z82.49 Family history of ischemic heart disease and other diseases of the circulatory system; Z88.6 Allergy status to analgesic agent; Z88.8 Allergy status to other drugs, medicaments and biological substances; Z90.89 Acquired absence of other organs; Z98.890 Other specified postprocedural states
CPT/HCPCS: 36415; 71046; 80053; 83036; 83735; 84443; 84484; 85025; 85610; 85730; 93005; 93306; 96365; 99291

== ENCOUNTER → 2019-11-23 | Outpatient (CLI) | payer MEDICARE, BC ==
[2019-11-23 14:35] LABS: Potassium 4.1 mmol/L (3.5-5.1)
[2019-11-23 14:37] LABS: HCT 39.1 % (34.0-46.0); HGB 12.9 gm/dL (11.4-16.0); MCH 31.9 pg (25.0-35.0); MCV 96.5 fL (80.0-100.0); Mean Platelet Volume 7.5; Platelet Count 194 k/uL (150-450); RBC 4.05 m/uL (3.80-5.40); WBC 5.7 k/uL (3.8-10.6)
== END | disposition home or self-care (01) ==
LOC: LABPAT 12:50
PROVIDERS: ATTEND Internal Medicine Clinical Cardiac Electrophysiology
DX: Z01.812 Encounter for preprocedural laboratory examination (principal); I25.10 Atherosclerotic heart disease of native coronary artery without angina pectoris; I10 Essential (primary) hypertension
CPT/HCPCS: 36415; 80051; 82565; 82947; 84520; 85027

== ENCOUNTER 2019-12-01 12:59 | Day surgery (SDC) | payer MEDICARE, BC ==
[2019-11-25 15:45] VITALS: BMI 27.3
[2019-12-01] MEDS ORDERED: MIDAZOLAM 2 MG/2 ML VIAL ONE (15:25)
[2019-12-01] MEDS ORDERED: fentaNYL (PF) 50 MCG/ML 2 ML AMP ONE (15:25)
[2019-12-01] MEDS ORDERED: HYDROmorphone (PF) 1 MG/ML ONE (15:25)
[2019-12-01] MEDS ORDERED: PROPOFOL 10 MG/ML 20 ML VIAL IV ONE (15:25)
--- NOTE | 2019-12-01 15:31 | P.HPCAR ---
History of Present Illness This is Sarah Snell PA-C dictating an H&P on this patient The patient was interviewed and examined by me as well as by Dr. Mirza Case discussed with Dr. Mirza and he agrees with the plan of care HPI Patient is a 69-year-old female with a past medical history CAD status post CABG, hypertension, dyslipidemia and SVT who presents for evaluation and management of atrial tachycardia. A few months ago the patient was experiencing palpitations and went to the emergency department for evaluation. EKG showed a rapid atrial tachycardia with 2 to one conduction, ventricular rate 146 bpm. She converted to sinus rhythm in the emergency department with a vagal maneuver. Since then she has had 2 more episodes of palpitations. Most recently one occurred last night and lasted for about 30 minutes. She tried bearing down without any relief. The symptoms finally resolved on their own. She did not have any dizziness chest pain or shortness of breath associated with it. Patient seen and examined resting in bed. Denies any recent infections, fevers, chills, cough. No chest pain or shortness of breath. No orthopnea or PND. ROS: No fevers, chills or rigors, no cough, phlegm or expectoration, no nausea, vomiting or diarrhea, no hematuria, dysuria, no musculoskeletal complaints, no strokes or seizures, no skin lesions. EXAMINATION: Temperature 97.9F, pulse 85, respirations 16 blood pressure 133/78, oxygen saturation 96% on room air Patient seen and examined resting in bed, in no acute distress Lungs are clear to auscultation bilaterally, no wheezing rhonchi or crackles Heart is regular, no audible murmurs No elevated JVD Abdomen soft and nontender to palpation No lower extremity edema REVIEW OF LABS, ECG & MEDICAL DATA Most recent labs reviewed, WBC 5.7, hemoglobin 12.9, platelets 194, potassium 4.1, BUN 24, creatinine 0.85, Most recent TSH in 09/25/2019 was within normal limits IMPRESSION / ASSESSMENT: Symptomatic paroxysmal atrial tachycardia with RVR CAD status post CABG Hypertension Dyslipidemia PLAN: Proceed with diagnostic EP study and possible RF ablation as indicated Physical Exam Vitals: Vital Signs Temp Pulse Resp BP Pulse Ox 12/01/19 13:23 97.9 F 85 16 133/78 96 Intake and Output 12/01/19 12/01/19 12/01/19 06:59 14:59 22:59 Other: Weight 73.5 kg Past Medical History Past Medical History: Coronary Artery Disease (CAD), Chest Pain / Angina, Hyperlipidemia, Hypertension, Osteoarthritis (OA) Additional Past Medical History / Comment(s): Pt states in her 30s she was told she had an irregular heart beat but does not recall name, IBS, colitis, arthritis bilateral wrists/ankles and back, diverticular disease, tinnitis bilaterally, elevated uric acid level with gout in L great toe/L hand. SEE DR MIRZA'S H&P FOR CARDIAC HX History of Any Multi-Drug Resistant Organisms: None Reported Past Surgical History: Back Surgery, Coronary Bypass/CABG, Heart Catheterization, Hysterectomy, Joint Replacement, Orthopedic Surgery, Tonsillectomy Additional Past Surgical History / Comment(s): 1998 CABG 2 vessel, bilateral carpal tunnel releases, bilateral total knees with L side done twice, one dental implant, colonoscopy. Past Anesthesia/Blood Transfusion Reactions: No Reported Reaction Smoking Status: Former smoker - Past Family History Mother Family Medical History: Diabetes Mellitus Father Family Medical History: Myocardial Infarction ([place]) Additional Family Medical History / Comment(s): DAD at 48 of cardiac problems . DADS [place] AT AGE 50 FROM [place] AND HIS FATHER AT AGE 36 FROM [place]. Brother(s) Family Medical History: Coronary Artery Disease (CAD) Additional Family Medical History / Comment(s): CABG Sister(s) Family Medical History: Coronary Artery Disease (CAD) Additional Family Medical History / Comment(s): QUAD CABG THEN WENT ON TO HAVE TOTAL OF 7 STENTS AFTERWARDS. Physical Examination Vital Signs Temp Pulse Resp BP Pulse Ox 12/01/19 13:23 97.9 F 85 16 133/78 96 Intake and Output 12/01/19 12/01/19 12/01/19 06:59 14:59 22:59 Other: Weight 73.5 kg Results Current Medications Generic Name Dose Route Start Last Admin Trade Name Freq PRN Reason Stop Dose Admin Sodium Chloride 1,000 mls @ 20 mls/hr 12/01/19 05:53 Saline 0.9% IV .Q24H HUSAM Lactated Ringer's 1,000 mls @ 20 mls/hr 12/01/19 05:53 Lactated Ringers IV .Q24H HUSAM Intake and Output 02/12/01/19 12/01/19 06:59 14:59 22:59 Other: Weight 73.5 kg Patient Weight 12/02/19 06:59 Weight 73.5 kg
[2019-12-01] MEDS ORDERED: IV FLUID CONTINUATION 800 ML IV ONE (15:44)
[2019-12-01] MEDS ORDERED: LIDOCAINE 1% INJ 10MG/ML (20 ML MDV) SQ ONE ×2 (15:52→16:12)
[2019-12-01] MEDS ORDERED: HEPARIN SODIUM (1,000 UNIT/ML) 1,000 UNIT in SODIUM CHLORIDE 0.9% 1,000 ML IRRIGATION ONE (16:49)
[2019-12-01] MEDS ORDERED: ACETAMINOPHEN TAB 325 MG TAB PO PRN (18:33)
[2019-12-01] MEDS ORDERED: ACETAMINOPHEN IV (For NPO) 1,000 MG in EMPTY BAG 1 BAG IVPB ONE (18:33)
[2019-12-01 19:39] VITALS: RESP 18
[2019-12-01] MEDS: LACTATED RINGERS 1,000 ML IV SCH ×2 (19:45→22:15)
[2019-12-01] MEDS: SODIUM CHLORIDE 0.9% 1,000 ML IV SCH ×2 (19:45→22:15)
[2019-12-01] MEDS ORDERED: ONDANSETRON 4 MG/2 ML VIAL IVP STA (19:49)
[2019-12-01] MEDS: METOPROLOL TARTRATE 12.5 MG TAB PO SCH (20:33)
[2019-12-01] MEDS: ALPRAZolam 0.25 MG TAB PO SCH (20:33)
[2019-12-01] MEDS: COLESEVELAM 625 MG TAB PO SCH (20:33)
[2019-12-01] MEDS ORDERED: LISINOPRIL-HCTZ 10-12.5 MG 1 EACH TAB PO SCH (21:00)
[2019-12-01] MEDS ORDERED: ATORVASTATIN 40 MG TAB PO SCH (21:00)
--- NOTE | 2019-12-02 06:10 | CE ---
CARDIAC ELECTROPHYSIOLOGY REPORT Patient with atrial tachycardia with 2:1 block with recurrent palpitations who was brought in for diagnostic EP study and possible radiofrequency ablation. Patient was brought to the EP lab in a fasting state. Written informed consent was obtained prior to the procedure. The left groins were prepped and draped as per protocol. Venous sheaths were placed in the right and left femoral veins. Via these, diagnostic and mapping ablation catheters were placed in the high right atrium, His bundle area, RV and coronary sinus and a mapping ablation catheter was placed in the right atrium in for mapping. Sinus cycle length 892 milliseconds, IA interval 196 milliseconds, QRS 93 milliseconds, QT 402 milliseconds, AH interval 103 milliseconds, HV interval 33 milliseconds. The sinus node recovery times at 600 and 500 milliseconds were 724 and 626 milliseconds. AV node Wenckebach block with straight pacing was performed. However, this induced atrial fibrillation when pacing at a cycle length of 390 milliseconds. The atrial fibrillation lasted for a few minutes and then it organized into an atrial tachycardia with concentric activation of the coronary sinus poles. Cycle length of about 230 milliseconds. This remained quite stable and therefore we proceeded with mapping of the right atrium. Mapping and ablation catheter was placed in the right atrium and a detailed map was performed during atrial tachycardia, the earliest activation site was mapped to outside the coronary sinus os anterior and inferior to it with excellent unipolar signals. However with further mapping, there was movement of the coronary sinus catheter and the patient went back into atrial fibrillation again and she had to be electrically cardioverted. Therefore the rest of the procedure of ablation of this site was performed in sinus rhythm. RF ablation was then performed in sinus rhythm in this area. There was significant diminution of the electrograms. Good power and good contact force were used. Power up to 40 romero was used with good impedance drop. Following that, straight pacing was performed from the high right atrium. Once again without induction of atrial fibrillation, straight pacing was performed from the coronary sinus without induction of atrial fibrillation. VA Wenckebach block was 460 milliseconds. All catheters were removed at the end of the procedure. RESULT: 1. Diagnostic EP study revealing easily inducible atrial fibrillation. 2. Organization of this atrial fibrillation to an atrial tachycardia with a cycle length of 230 milliseconds, which is very similar to the clinical tachycardia. Coronary sinus massage at this time produced greater than 3 second pause, which allowed us to assess the morphology of the atrial tachycardia. This had negatively oriented P waves in the inferior leads consistent with the location of this the atrial tachycardia focus just anterior and inferior to the coronary sinus os. Successful ablation was performed here which resulted in non-inducibility of this tachycardia. However, this patient does have very easily inducible atrial fibrillation and if she continues to have palpitations, then I would recommend implantation of a loop monitor or if you document atrial fibrillation in the future she should be anticoagulated for stroke prevention. MMODL / IJN: [id number] /
--- NOTE | 2019-12-02 06:10 | LTR ---
December 01, 2019 Re: Dali Teresaean Dear Dr Healy: I had the pleasure seeing Dali Luong in electrophysiology followup. As you know, Dali had an atrial tachycardia with 2:1 AV block and she underwent a diagnostic EP study today. We induced atrial fibrillation rather easily with this organized to her clinical atrial tachycardia 2:1 block. This was a very rapid atrial tachycardia originating outside the coronary sinus os and just inferior to it. Successful ablation was performed here, but I suspect that she has atrial fibrillation and this atrial tachycardia simply one of the foci/source of atrial fibrillation. Therefore, if she continues to have palpitations and we document atrial fibrillation clinically, then she should be anticoagulated in the future. I may consider implantation of loop monitor for this purpose in the future. Thank you for entrusting me in the care of your patient. Warm regards. Sincerely, Jon Mirza MD MMVÍCTORL / JENNI: [id number] /
[2019-12-02] MEDS: COLESEVELAM 625 MG TAB PO SCH (07:58)
[2019-12-02] MEDS: ALPRAZolam 0.25 MG TAB PO SCH (07:59)
[2019-12-02] MEDS: METOPROLOL TARTRATE 12.5 MG TAB PO SCH (07:59)
[2019-12-02] MEDS ORDERED: ASPIRIN 81 MG PO SCH (09:00)
[2019-12-02] MEDS ORDERED: ALLOPURINOL 300 MG TAB PO SCH (09:00)
[2019-12-02] MEDS ORDERED: buPROPion XL 300 MG TAB.ER.24H PO SCH (09:00)
--- NOTE | 2019-12-02 10:11 | P.DS ---
Providers Attending physician: Jon Mirza Primary care physician: Ed Johnson [facility] Course: Patient is a 69-year-old female with a past medical history CAD status post CABG, hypertension, dyslipidemia and SVT who presents for evaluation and management of atrial tachycardia. A few months ago the patient was experiencing palpitations and went to the emergency department for evaluation. EKG showed a rapid atrial tachycardia with 2 to one conduction, ventricular rate 146 bpm. she presented to the hospital for an elective diagnostic EP study and possible RF ablation. The procedure easily revealed inducible atrial fibrillation. Atrial fibrillation and converted to atrial tachycardia with a cycle length of 230 ms that was similar to the clinical tachycardia she had in the emergency department. Successful ablation was performed resulting in an noninducibility of this tachycardia. The possible of inducible atrial fibrillation is a consideration. Advised the patient if she has further symptoms of palpitations a loop recorder implantation would be indicated. She is seen and examined resting comfortably sitting up in bed in no acute distress. She has been up and ambulating without incident. Venous access sites bilaterally are soft, dry, intact with no evidence of hematoma or ecchymosis. Peripheral pulses intact. Blood pressure 104/68 heart rate 70 afebrile maintaining oxygen saturation on room air. Follow-up in the office with Dr. Melendez in one week. Plan - Discharge Summary Discharge Rx Participant: No New Discharge Prescriptions: Continue Atorvastatin Calcium [Lipitor] 40 mg PO HS ALPRAZolam [Xanax] 0.25 mg PO BID buPROPion HCL [Wellbutrin XL] 300 mg PO QAM Colesevelam [Welchol] 1,875 mg PO BID Lisinopril-Hctz 10-12.5 mg [Zestoretic 10-12.5] 1 tab PO HS Aspirin 162 mg PO DAILY Allopurinol [Zyloprim] 300 mg PO QAM Metoprolol Tartrate [Lopressor] 12.5 mg PO BID tab Multivitamin [Multivitamins Adult Gummies] 1 each PO DAILY Discharge Medication List ALPRAZolam [Xanax] 0.25 mg PO BID 05/08/14 [History] Atorvastatin Calcium [Lipitor] 40 mg PO HS 05/08/14 [History] Colesevelam [Welchol] 1,875 mg PO BID 05/08/14 [History] buPROPion HCL [Wellbutrin XL] 300 mg PO QAM 05/08/14 [History] Allopurinol [Zyloprim] 300 mg PO QAM 09/25/19 [History] Aspirin 162 mg PO DAILY 09/25/19 [History] Lisinopril-Hctz 10-12.5 mg [Zestoretic 10-12.5] 1 tab PO HS 09/25/19 [History] Metoprolol Tartrate [Lopressor] 12.5 mg PO BID tab 09/26/19 [Rx] Multivitamin [Multivitamins Adult Gummies] 1 each PO DAILY 11/25/19 [History] Follow up Appointment(s)/Referral(s): Jon Mirza MD [STAFF PHYSICIAN] - 12/09/19 4:00 pm (With Sarah REAGAN) Patient Instructions/Handouts: Chest Pain (DC) Activity/Diet/Wound Care/Special Instructions: Post EP study - Ablation instructions 1. Keep access sites dry for 2 days. 2. No heavy lifting or straining for 2 days. 3. Avoid bending the hips repeatedly for 2 days. 4. You may go up and down stairs slowly Call if the following is noted 1. Bleeding, increasing swelling or pain at the access sites. 2. Increasing chest discomfort, especially upon taking a deep breath. 3. Increasing shortness of breath, at rest or with exertion. 4. Undue cough / phlegm 5. Difficulty or pain while swallowing. 6. Pain or change in color in the extremities. 7. Fever, chills, rigors. 8. Increasing headache or neurologic symptoms. 9. Dizziness, fainting, palpitations Discharge Disposition: HOME SELF-CARE
[2019-12-02 11:25] VITALS: BP 109/69; PULSE 61; TEMP 98.1
== END 2019-12-02 12:36 | disposition home or self-care (01) ==
LOC: CATHEP 12:59 → 1SOBS 18:25 → CATHEP 12-02 12:36
PROVIDERS: ATTEND Internal Medicine Clinical Cardiac Electrophysiology
DX: I47.1 Supraventricular tachycardia (principal); I25.119 Atherosclerotic heart disease of native coronary artery with unspecified angina pectoris; I10 Essential (primary) hypertension; Z87.891 Personal history of nicotine dependence; E78.5 Hyperlipidemia, unspecified; M19.90 Unspecified osteoarthritis, unspecified site; K52.9 Noninfective gastroenteritis and colitis, unspecified; M19.079 Primary osteoarthritis, unspecified ankle and foot; M19.039 Primary osteoarthritis, unspecified wrist; M47.9 Spondylosis, unspecified; K57.90 Diverticulosis of intestine, part unspecified, without perforation or abscess without bleeding; H93.13 Tinnitus, bilateral; M10.9 Gout, unspecified; F39 Unspecified mood [affective] disorder; Z97.2 Presence of dental prosthetic device (complete) (partial); Z83.3 Family history of diabetes mellitus; Z82.49 Family history of ischemic heart disease and other diseases of the circulatory system; Z95.1 Presence of aortocoronary bypass graft; Z90.710 Acquired absence of both cervix and uterus; Z96.653 Presence of artificial knee joint, bilateral; Z79.82 Long term (current) use of aspirin; Z79.899 Other long term (current) drug therapy; Z88.3 Allergy status to other anti-infective agents; Z88.5 Allergy status to narcotic agent
CPT/HCPCS: 92960; 93613; 93653; C1894; C1769 ×2; C1730 ×3; C1732; J2250; J2405; J2001; J3010; J1644; J1170; J2704

== ENCOUNTER 2020-05-30 12:07 | Day surgery (SDC) | payer MEDICARE, BC ==
[2020-05-27 08:43] VITALS: BMI 28.3
[~2020-05-30 12:07] MED LIST changes: -LACTATED RINGERS 1,000 ML IV SCH; -LIDOCAINE 1% 20 ML VIAL (10MG/ML) FOR IV START INTRADERMA ONE; -LIDOCAINE 1% INJ 10MG/ML (20 ML MDV) ONE; -PROPOFOL 10 MG/ML 20 ML VIAL IV ONE; +SODIUM CHLORIDE 0.9% 1,000 ML IV SCH
[2020-05-30 12:49] VITALS: RESP 16
[2020-05-30] MEDS ORDERED: SODIUM CHLORIDE 0.9% 500 ML 500 ML IV ONE (12:49)
[2020-05-30] MEDS ORDERED: LIDOCAINE 1% INJ 10MG/ML (20 ML MDV) ONE (12:59)
[2020-05-30] MEDS ORDERED: MIDAZOLAM 2 MG/2 ML VIAL IV ONE (13:21)
[2020-05-30] MEDS ORDERED: LIDOCAINE 1% INJ 10MG/ML (20 ML MDV) SQ ONE (13:25)
[2020-05-30 16:11] VITALS: BP 132/68; PULSE 64
--- NOTE | 2020-05-30 16:32 | P.PCN ---
Preoperative Diagnosis: Loop monitor implant Primary physicians: Packaging Sales Consultant: Dr. Mirza Indication: Patient was brought to the EP lab in a fasting state. Written informed consent was obtained prior to the procedure. The left pectoral area was prepped and draped per protocol. Intravenous antibiotic was administered preoperatively. A subcutaneous Loop monitor was implanted successfully and the wound was closed per protocol. The device was programmed to detect significant abeba- arrhythmic and tachy-arrhythmic events, per protocol. Device and programming details: Tachycardia detection Patient underwent EP procedure under conscious sedation/moderate sedation, monitoring of the level of consciousness and physiologic parameters including but not limited to vital signs and oxygenation. Patient tolerated the procedure well without any acute complications. Start time: 1321 Stop time: 1331
== END 2020-05-30 15:00 | disposition home or self-care (01) ==
LOC: CATHEP 12:07
PROVIDERS: ATTEND Internal Medicine Clinical Cardiac Electrophysiology
DX: I47.1 Supraventricular tachycardia (principal); I10 Essential (primary) hypertension; E78.5 Hyperlipidemia, unspecified; I25.10 Atherosclerotic heart disease of native coronary artery without angina pectoris; Z95.1 Presence of aortocoronary bypass graft; Z72.0 Tobacco use; Z79.899 Other long term (current) drug therapy; Z79.82 Long term (current) use of aspirin; Z88.5 Allergy status to narcotic agent
CPT/HCPCS: 33285; C1764; J2250; J0690; J2001

== ENCOUNTER → 2021-09-25 | Outpatient (CLI) | payer MEDICARE, BC ==
[2021-09-25 15:54] LABS: HCT 41.8 % (34.0-46.0); HGB 13.6 gm/dL (11.4-16.0); MCH 32.6 pg (25.0-35.0); MCHC 32.6 g/dL (31.0-37.0); MCV 100.2 fL (80.0-100.0); Mean Platelet Volume 7.6; Platelet Count 232 k/uL (150-450); RBC 4.17 m/uL (3.80-5.40); RDW 13.2 % (11.5-15.5); WBC 6.9 k/uL (3.8-10.6)
[2021-09-25 16:11] LABS: Potassium 3.7 mmol/L (3.5-5.1)
== END | disposition home or self-care (01) ==
LOC: LABPAT 13:48
PROVIDERS: ATTEND Internal Medicine Interventional Cardiology
DX: Z01.812 Encounter for preprocedural laboratory examination (principal); R94.39 Abnormal result of other cardiovascular function study
CPT/HCPCS: 80051; 82565; 84520; 85027; U0003; C9803

== ENCOUNTER 2021-09-27 11:38 | Day surgery (SDC) | payer MEDICARE, BC ==
[2021-09-26 09:57] VITALS: BMI 28.6
[~2021-09-27 11:38] MED LIST changes: +ALPRAZolam 0.25 MG TAB PO PRN; +ALPRAZolam 0.5 MG TAB PO PRN; +ASPIRIN 325 MG TAB PO STA; +ATORVASTATIN 80 MG TAB PO STA; +NITROGLYCERIN SL TABS 0.4 MG TAB SUBLINGUAL PRN; -SODIUM CHLORIDE 0.9% 1,000 ML IV SCH
[2021-09-27] MEDS ORDERED: SODIUM CHLORIDE 0.9% 1,000 ML IV ONE (11:44)
[2021-09-27] MEDS ORDERED: MIDAZOLAM 2 MG/2 ML VIAL IV ONE ×2 (13:18→13:40)
[2021-09-27] MEDS ORDERED: LIDOCAINE 1% INJ 10MG/ML (20 ML MDV) SQ ONE (13:32)
[2021-09-27] MEDS ORDERED: HYDROmorphone 0.5 MG/0.5 ML SYRINGE IVP ONE (13:59)
[2021-09-27] MEDS ORDERED: niCARdipine 25 MG/10 ML VIAL ONE (14:03)
[2021-09-27] MEDS ORDERED: CLOPIDOGREL 75 MG TAB ONE (14:12)
[2021-09-27] MEDS ORDERED: CLOPIDOGREL 75 MG TAB PO ONE (14:16)
[2021-09-27] MEDS ORDERED: IOPAMIDOL-370 125ML BTL INJ ONE (14:16)
[2021-09-27] MEDS ORDERED: IOPAMIDOL-370 100ML BTL INJ ONE (14:25)
[2021-09-27] MEDS ORDERED: ZOLPIDEM 5 MG TAB PO PRN (14:38)
[2021-09-27] MEDS ORDERED: ATROPINE SULFATE 0.1 MG/ML 10ML SYRINGE IV PRN (14:38)
[2021-09-27] MEDS ORDERED: MAG HYDROX/AL HYDROX/SIMETH 30 ML CUP PO PRN (14:38)
[2021-09-27] MEDS ORDERED: NITROGLYCERIN SL TABS 0.4 MG TAB SUBLINGUAL PRN (14:38)
[2021-09-27] MEDS ORDERED: RX INFO: IV CONTRAST WAS GIVEN 1 EACH MISC MISCELLANE PRN (14:38)
[2021-09-27] MEDS ORDERED: SODIUM CHLORIDE 0.9% 1,000 ML IV SCH (14:45)
[2021-09-27] MEDS ORDERED: ACETAMINOPHEN TAB 325 MG TAB ONE (16:15)
--- NOTE | 2021-09-27 16:18 | CC ---
CARDIAC CATHETERIZATION REPORT DATE OF SERVICE: September 27, 2021. PERFORMING PHYSICIAN: Chepe Herrera MD. PROCEDURE PERFORMED: 1. Selective left and right coronary angiogram. 2. HOOD to LAD angiogram. 3. Successful stenting of the mid right coronary artery using 2.75 x 23 mm Xience YEN with an excellent angiographic results. 4. Successful stenting of the proximal right coronary artery using 3.0 x 18 mm Xience drug-eluting stent with an excellent angiographic results. 5. Successful stenting of the proximal left circumflex coronary artery using a 3.0 x 15 mm Xience drug-eluting stent with an excellent angiographic results. 6. Selective right common femoral artery angiogram. INDICATION: This is a 71-year-old female patient who sees Dr. Mirza regularly with coronary artery disease and prior coronary artery bypass grafting with known a patent HOOD to LAD and occluded vein graft to the diagonal as well as hypertension and dyslipidemia who was experiencing shortness of breath with exertion. She underwent recently myocardial perfusion imaging stress test and that showed reversibility concerning for ischemia. In light of that, a heart catheterization was advised. APPROACH: Right common femoral artery. COMPLICATIONS: None. LEVEL OF SEDATION: Moderate, with sedation length of 57 minutes. PROCEDURE DESCRIPTION: After obtaining an informed consent, the patient was brought to the cardiac car barn laborer. The right common femoral artery was cannulated using micropuncture technique, the micropuncture wire passed easily. Then I placed a 6-Georgian sheath at the right common femoral artery. I did selective left and right coronary angiogram using JL4 and JR4 catheters. Left heart catheterization was performed using a pigtail catheter. After that, HOOD to LAD angiogram was performed using the JR4 catheter. After that, I did intervene on the RCA and LCX. Please see a separate paragraph for that. SELECTIVE CORONARY ANGIOGRAM: 1. The left main appeared to be calcified with mild disease only. It bifurcates into left circumflex and left anterior descending artery. 2. The left circumflex is a large-caliber vessel. It is a nondominant vessel. The proximal left circumflex has a critical and calcified and eccentric lesion appeared to be in the range of 90% to 95%. The left circumflex gives rise into a large first obtuse marginal branch which appeared to be angiographically normal. 3. The LAD is occluded by the proximal portion. The HOOD to LAD is patent. 4. The right coronary artery is a large-caliber vessel. It is a dominant vessel. The RCA is extremely calcified. The proximal RCA has eccentric calcified lesion in the range of 90% to 95% and the mid RCA has a lesion appeared to be in the range of 50% to 80%. The RCA distally gives rise into a PDA branch which has mild disease only. CORONARY BYPASSES ANGIOGRAM: The HOOD to LAD is patent and the HOOD fills the LAD antegrade as well as retrograde. HEMODYNAMICS: The LVEDP was about 12-14 mmHg without significant gradient across aortic valve. PCI of the RCA and PCI of the left circumflex: Anticoagulation was achieved using heparin with continuous ACT monitoring throughout the procedure. Subsequently I did engage the RCA using JR4 guiding catheter. I did wire the RCA from the [email or web address] go using 2 wires. I wired with a Whisper wire. Subsequently, a run-through wire. The reason I did that because the lesion was extremely calcified and eccentric. I did balloon angioplasty of the RCA using x 15 mm balloon where I did PTCA ballooning of the mid as well as proximal RCA. Subsequently for the RCA in the midportion, I deployed 275 x 23 mm Xience drug-eluting stent where the stent was positioned under fluoroscopic guidance and deployed under its nominal pressure. The following angiogram for that lesion showed excellent angiographic results. For the proximal RCA lesion, I did deploy 3.0 x 18 mm another Xience drug-eluting stent where the stent was positioned under fluoroscopic guidance as well and deployed under its nominal pressure. After the hailey wire was pulled out, the final angiogram showed excellent angiographic results and the procedure on the RCA was completed. For the left circumflex coronary system, I did engage the left main using an EBU 3.75 guiding catheter. I did wire the left circumflex as well using 2 wires from the [employer] using whisper and run-through. Balloon angioplasty for the circumflex was performed using 2.5 x 12 mm balloon. Subsequently I deployed 3.0 x 15 mm Xience drug-eluting stents, where the stent was positioned under fluoroscopic guidance and deployed under 12 atmospheres for 20 seconds after the hailey wire was pulled out. The final angiogram showed excellent angiographic results and the procedure was completed without any complication. CONCLUSION: 1. Shortness of breath as well as abnormal myocardial perfusion imaging stress test in this 71-year-old female patient with known CAD and prior coronary artery bypass grafting. 2. Severe triple-vessel coronary artery disease. 3. Occluded LAD in the proximal portion. The HOOD to LAD is patent. 4. Critical disease involving the proximal left circumflex coronary artery. I performed successful stenting of the left circumflex as described above with an excellent angiographic results. 5. Critical disease involving the proximal and mid RCA. I performed successful stenting of the proximal and mid RCA as described above. 6. Normal left-sided filling pressure. POSTPROCEDURE MANAGEMENT: 1. Dual anti-platelet therapy. 2. Aggressive cholesterol control. 3. Risk factor modifications. 4. Follow up with Dr. Mirza as an outpatient. MMODL / IJN: [id number] /
[2021-09-27] MEDS ORDERED: ACETAMINOPHEN TAB 325 MG TAB PO PRN (17:23)
[2021-09-27] MEDS: ALPRAZolam 0.5 MG TAB PO SCH (20:26)
[2021-09-27] MEDS: METOPROLOL TARTRATE 12.5 MG TAB PO SCH (20:26)
[2021-09-27] MEDS: AMOXIC-POT CLAV 500-125 MG 1 EACH TAB PO SCH (20:26)
[2021-09-27] MEDS: COLESEVELAM 625 MG TAB PO SCH (20:26)
[2021-09-27] MEDS: SODIUM CHLORIDE 0.9% 1,000 ML in EMPTY BAG 1 BAG IV SCH ×2 (20:27→20:28)
[2021-09-27] MEDS ORDERED: LISINOPRIL-HCTZ 10-12.5 MG 1 EACH TAB PO SCH (21:00)
[2021-09-27] MEDS ORDERED: ATORVASTATIN 80 MG TAB PO SCH (21:00)
[2021-09-28 06:30] LABS: Basophils % (A) 1 %; Eosinophils # (A) 0.2 k/uL (0-0.7); Eosinophils % (A) 3 %; HCT 35.3 % (34.0-46.0); HGB 11.9 gm/dL (11.4-16.0); Lymphocytes # (A) 1.8 k/uL (1.0-4.8); Lymphocytes % (A) 26 %; MCH 33.4 pg (25.0-35.0); MCHC 33.6 g/dL (31.0-37.0); MCV 99.2 fL (80.0-100.0); Mean Platelet Volume 7.6; Monocytes # (A) 0.3 k/uL (0-1.0); Monocytes % (A) 5 %; Neutrophils # (A) 4.7 k/uL (1.3-7.7); Neutrophils % (A) 66 %; Platelet Count 171 k/uL (150-450); RBC 3.55 m/uL (3.80-5.40); RDW 13.2 % (11.5-15.5); WBC 7.1 k/uL (3.8-10.6)
[2021-09-28 07:16] LABS: African American GFR (CKD) 89 (>60 ml/min/1.73 sqM); Anion Gap 3 mmol/L; Blood Urea Nitrogen 14 mg/dL (7-17); Calcium 8.9 mg/dL (8.4-10.2); Carbon Dioxide 27 mmol/L (22-30); Chloride 109 mmol/L (98-107); Glucose 90 mg/dL (74-99); Non-African American GFR(CKD) 77 (>60 ml/min/1.73 sqM); Potassium 3.5 mmol/L (3.5-5.1); Sodium 139 mmol/L (137-145)
[2021-09-28] MEDS: ALPRAZolam 0.5 MG TAB PO SCH (08:09)
[2021-09-28] MEDS: COLESEVELAM 625 MG TAB PO SCH (08:10)
[2021-09-28] MEDS: AMOXIC-POT CLAV 500-125 MG 1 EACH TAB PO SCH (08:10)
[2021-09-28] MEDS: METOPROLOL TARTRATE 12.5 MG TAB PO SCH (08:10)
[2021-09-28] MEDS ORDERED: ASPIRIN 81 MG PO SCH (09:00)
[2021-09-28] MEDS ORDERED: buPROPion XL 300 MG TAB.ER.24H PO SCH (09:00)
[2021-09-28] MEDS ORDERED: NON FORMULARY DRUG (Multivitamin [Multivitamins Adult Gummies] 1 EACH Tablet) PO SCH (09:00)
[2021-09-28] MEDS ORDERED: CBD OIL PO SCH (09:00)
[2021-09-28] MEDS ORDERED: MULTIVITAMINS, THERA 1 EACH TAB PO SCH (09:00)
[2021-09-28] MEDS ORDERED: CLOPIDOGREL 75 MG TAB PO SCH (09:00)
[2021-09-28] MEDS ORDERED: allopurinoL 300 MG TAB PO SCH (09:00)
--- NOTE | 2021-09-28 09:20 | P.DS ---
Providers Date of admission: September 27 Attending physician: Chepe Herrera Consults: 09/27/21 14:38 Consult Physician Routine Consulting Provider: [facility] Consult Reason/Comments: Post Interventional patient Do you want consulting provider notified?: Already Contacted Primary care physician: Ed Johnson [facility] Course: This is a 71-year-old female patient who sees Dr. Gottlieb regularly with a past medical history significant for coronary artery disease and status post coronary artery bypass grafting who was experiencing symptoms of shortness of breath. She underwent myocardial perfusion imaging stress test and that came in to be abnormal showing reversibility concerning for severe underlying CAD. For that reason she was referred for heart catheterization. The heart soren terization revealed severe triple vessel coronary artery disease with patent HOOD to LAD and unprotected left circumflex and RCA. She underwent successful PCI of very calcified left circumflex and RCA with a good angiographic results and without any complication from right groin approach. The patient was seen in this morning. She is asymptomatic from the cardiovascular standpoint of view. She has been maintaining normal sinus mechanism. Hemodynamically she is stable. The right groin is soft and nontender and without any bruises. The patient is going to be discharged home on dual antiplatelet therapy along with high intensity statin to follow-up with Dr. Gottlieb in a week Plan - Discharge Summary Discharge Rx Participant: No New Discharge Prescriptions: New Clopidogrel [Plavix] 75 mg PO DAILY #90 tab Continue Atorvastatin Calcium [Lipitor] 80 mg PO HS ALPRAZolam [Xanax] 0.5 mg PO BID buPROPion HCL [Wellbutrin XL] 300 mg PO QAM Colesevelam [Welchol] 1,875 mg PO BID Lisinopril-Hctz 10-12.5 mg [Zestoretic 10-12.5] 1 tab PO HS Aspirin 81 mg PO DAILY Allopurinol [Zyloprim] 300 mg PO QAM Metoprolol Tartrate [Lopressor] 12.5 mg PO BID tab Multivitamin [Multivitamins Adult Gummies] 1 each PO DAILY Cbd Oil (Unknown Dose) 1 tab PO DAILY Multivit-Min/Folic Acid/Biotin [Hair, Skin and Nails Softgel] 133.3 mcg PO DAILY Amoxic-Pot Clav 500-125 mg [Augmentin 500-125 mg] 1 tab PO Q12HR Discharge Medication List ALPRAZolam [Xanax] 0.5 mg PO BID 05/08/14 [History] Atorvastatin Calcium [Lipitor] 80 mg PO HS 05/08/14 [History] Colesevelam [Welchol] 1,875 mg PO BID 05/08/14 [History] buPROPion HCL [Wellbutrin XL] 300 mg PO QAM 05/08/14 [History] Allopurinol [Zyloprim] 300 mg PO QAM 09/25/19 [History] Aspirin 81 mg PO DAILY 09/25/19 [History] Lisinopril-Hctz 10-12.5 mg [Zestoretic 10-12.5] 1 tab PO HS 09/25/19 [History] Metoprolol Tartrate [Lopressor] 12.5 mg PO BID tab 09/26/19 [Rx] Multivitamin [Multivitamins Adult Gummies] 1 each PO DAILY 11/25/19 [History] Cbd Oil (Unknown Dose) 1 tab PO DAILY 05/27/20 [History] Amoxic-Pot Clav 500-125 mg [Augmentin 500-125 mg] 1 tab PO Q12HR 09/26/21 [History] Multivit-Min/Folic Acid/Biotin [Hair, Skin and Nails Softgel] 133.3 mcg PO DAILY 09/26/21 [History] Clopidogrel [Plavix] 75 mg PO DAILY #90 tab 09/28/21 [Rx] Follow up Appointment(s)/Referral(s): Jon Gottlieb MD [STAFF PHYSICIAN] - 1 Week Patient Instructions/Handouts: *Surgery [facility] - After Heart Catheterization - Brick Off Bearer Instructions, Left Heart Catheterization (DC)
[2021-09-28 09:27] VITALS: BP 118/71; PULSE 70; RESP 18; TEMP 98.5
[2021-09-28] MEDS: SODIUM CHLORIDE 0.9% 1,000 ML in EMPTY BAG 1 BAG IV SCH (11:14)
== END 2021-09-28 11:25 | disposition home or self-care (01) ==
LOC: CATHCVL 11:38 → 6NMEDSUR 14:30 → CATHCVL 09-28 11:25
PROVIDERS: ATTEND Internal Medicine Interventional Cardiology
DX: I25.10 Atherosclerotic heart disease of native coronary artery without angina pectoris (principal); I25.810 Atherosclerosis of coronary artery bypass graft(s) without angina pectoris; I25.84 Coronary atherosclerosis due to calcified coronary lesion; I10 Essential (primary) hypertension; I27.20 Pulmonary hypertension, unspecified; I65.23 Occlusion and stenosis of bilateral carotid arteries; I08.1 Rheumatic disorders of both mitral and tricuspid valves; Z79.899 Other long term (current) drug therapy; Z79.82 Long term (current) use of aspirin
CPT/HCPCS: 93459; 80048; 85025; C9600; C1769 ×3; C1887 ×2; C1894; C1725; C1874 ×3; J2250; J2001; J1644; J1170; Q9967 ×2

== ENCOUNTER → 2021-12-15 | Outpatient (CLI) | payer MEDICARE, BC ==
[2021-12-15 18:24] LABS: Chol/HDL Ratio 2.66 Ratio; LDL Cholesterol,Calculated 70.2 mg/dL (0.0-131.0); VLDL Calculation 18.42 mg/dL (5.00-40.00)
== END | disposition home or self-care (01) ==
LOC: LABWHC1 08:43
PROVIDERS: ATTEND Nurse Practitioner Adult Health
DX: E78.5 Hyperlipidemia, unspecified (principal)
CPT/HCPCS: 36415; 80061

== ENCOUNTER 2023-08-27 13:05 | Emergency (ER) | payer MEDICARE, BC ==
--- NOTE | 2023-08-27 13:19 | ED ---
General Adult HPI - General Source: patient, RN notes reviewed Mode of arrival: ambulatory Limitations: no limitations <Sanjay Major - Last Filed: 08/27/23 13:17> - General Source: RN notes reviewed, old records reviewed Mode of arrival: ambulatory Limitations: no limitations - History of Present Illness -: days(s) Radiation: non-radiation Severity scale (1-10): 7 Quality: aching, sharp Consistency: intermittent Improves with: none Worsens with: none Associated Symptoms: chest pain, cough, weakness Treatments Prior to Arrival: none <Richard Garvey - Last Filed: 09/03/23 22:39> - General Stated complaint: SOB Time Seen by Provider: 08/27/23 13:17 - History of Present Illness Initial comments: 72-year-old female presents emergency Department with shortness of breath. Pat rizwanant states that she has felt increasing shortness for, shaking last few days. She is concerned that she has no cardiac history. Patient does admit that she has a slight scratchy sore throat denies any fever cough or cold-like symptoms otherwise. Patient states she feels very unsteady of her legs. (Sanjay Major) This is a 72-year-old female to the emergency department for evaluation of shortness of breath that his been increasing for a few days as well as chest pain. History for any heart disease here in the ER. No current chest pain no fevers. (Richard Garvey) - Related Data Home Medications Medication Instructions Recorded Confirmed Atorvastatin Calcium [Lipitor] 80 mg PO HS 05/08/14 09/29/21 Colesevelam [Welchol] 1,875 mg PO BID 05/08/14 09/29/21 buPROPion HCL [Wellbutrin XL] 300 mg PO HS 05/08/14 09/29/21 Aspirin 81 mg PO DAILY 09/25/19 09/29/21 Lisinopril-Hctz 10-12.5 mg 1 tab PO HS 09/25/19 09/29/21 [Zestoretic 10-12.5] allopurinoL [Zyloprim] 300 mg PO DAILY 09/25/19 09/29/21 Multivitamin [Multivitamins Adult 1 tab PO DAILY 11/25/19 09/29/21 Gummies] Cbd Oil (Unknown Dose) 1 cap PO DAILY 05/27/20 09/29/21 Amoxic-Pot Clav 500-125 mg 1 tab PO BID 09/26/21 09/29/21 [Augmentin 500-125 mg] Multivit-Min/Folic Acid/Biotin 133.3 mcg PO DAILY 09/26/21 09/29/21 [Hair, Skin and Nails Softgel] ALPRAZolam [Xanax] 0.5 mg PO BID 09/29/21 09/29/21 Nitroglycerin Sl Tabs [Nitrostat] 0.4 mg SUBLINGUAL Q5M PRN 09/29/21 09/29/21 Prevagen Extra Strength Capsule 1 cap PO DAILY 09/29/21 09/29/21 Previous Rx's Medication Instructions Recorded Metoprolol Tartrate [Lopressor] 12.5 mg PO BID tab 09/26/19 Clopidogrel [Plavix] 75 mg PO DAILY #90 tab 09/28/21 Isosorbide Mononitrate ER [Imdur] 30 mg PO DAILY 30 Days #30 tablet 10/01/21 Allergies Allergy/AdvReac Type Severity Reaction Status Date / Time tramadol AdvReac Nausea & Verified 08/27/23 13:23 Vomiting Review of Systems ROS Other: All systems not noted in ROS Statement are negative. <Sanjay Major - Last Filed: 08/27/23 13:17> ROS Other: All systems not noted in ROS Statement are negative. <Richard Garvey - Last Filed: 09/03/23 22:39> ROS Statement: Those systems with pertinent positive or pertinent negative responses have been documented in the HPI. Past Medical History Past Medical History: Coronary Artery Disease (CAD), Chest Pain / Angina, Hyperlipidemia, Hypertension, Osteoarthritis (OA) Additional Past Medical History / Comment(s): Hx of A-fib & tachycardia, IBS, colitis, arthritis bilateral wrists/ankles and back, Hx. of Diverticulitis, tinnitis bilaterally, UTI, elevated uric acid level with gout in L great toe/L hand. History of Any Multi-Drug Resistant Organisms: None Reported Past Surgical History: Heart Catheterization With Stent Additional Past Surgical History / Comment(s): 1998 CABG 2 vessel, bilateral carpal tunnel releases, bilateral total knees with L side done twice, one dental implant, colonoscopy. EP study, back surgery. 3 stents placed 09/26/21. Past Anesthesia/Blood Transfusion Reactions: No Reported Reaction Date of Last Stent Placement:: 09/27/21 Past Psychological History: Anxiety, Depression Smoking Status: Never smoker Past Alcohol Use History: None Reported Past Drug Use History: None Reported - Past Family History Mother Family Medical History: Diabetes Mellitus Father Family Medical History: Myocardial Infarction ([place]) Additional Family Medical History / Comment(s): DAD at 48 of cardiac problems . DADS [place] AT AGE 50 FROM [place] AND HIS FATHER AT AGE 36 FROM [place]. Brother(s) Family Medical History: Coronary Artery Disease (CAD) Additional Family Medical History / Comment(s): CABG Sister(s) Family Medical History: Coronary Artery Disease (CAD) Additional Family Medical History / Comment(s): QUAD CABG THEN WENT ON TO HAVE TOTAL OF 7 STENTS AFTERWARDS. <Sanjay Major - Last Filed: 08/27/23 13:17> General Exam <Sanjay Major - Last Filed: 08/27/23 13:17> General appearance: alert, in no apparent distress, anxious Head exam: Present: atraumatic, normocephalic, normal inspection Eye exam: Present: normal appearance, PERRL, EOMI. Absent: scleral icterus, conjunctival injection, periorbital swelling ENT exam: Present: normal exam, mucous membranes moist Neck exam: Present: normal inspection. Absent: tenderness, meningismus, lymphadenopathy Respiratory exam: Present: normal lung sounds bilaterally. Absent: respiratory distress, wheezes, rales, rhonchi, stridor Cardiovascular Exam: Present: regular rate, normal rhythm, normal heart sounds. Absent: systolic murmur, diastolic murmur, rubs, gallop, clicks GI/Abdominal exam: Present: soft, normal bowel sounds. Absent: distended, tenderness, guarding, rebound, rigid Extremities exam: Present: normal inspection, full ROM, normal capillary refill. Absent: tenderness, pedal edema, joint swelling, calf tenderness Back exam: Present: normal inspection Neurological exam: Present: alert, oriented X3, CN II-XII intact Psychiatric exam: Present: normal affect, normal mood Skin exam: Present: warm, dry, intact, normal color. Absent: rash <Richard Garvey - Last Filed: 11/28/23 22:39> - General Exam Comments Initial Comments: Visual Physical Exam Vital signs reviewed General: Well-appearing, nontoxic, no acute distress. Head: Normocephalic, atraumatic Eyes: PERRLA, EOMI ENT: Airway patent Chest: Nonlabored breathing Skin: No visual rash, normal skin tone Neuro: Alert and oriented 3 Musculoskeletal: No gross abnormalities (Sanjay Major) Course <Richard Garvey - Last Filed: 09/03/23 22:39> Vital Signs 08/27/23 08/27/23 13:23 19:05 Temperature 98.4 F 97.8 F Pulse Rate 69 58 L Respiratory 16 16 Rate Blood Pressure 149/79 164/84 O2 Sat by Pulse 96 97 Oximetry - Reevaluation(s) Reevaluation #1: 08/27/23 Medical records reviewed (Richard Garvey) Reevaluation #2: 08/27/23 Patient's chest pain resolved here in the ER (Richard Garvey) Reevaluation #3: 08/27/23 Patient informed results and questions answered (Richard Garvey) Reevaluation #4: Was pt. sent in by a medical professional or institution (, PA, [employer], urgent care, hospital, or fci...) When possible be specific @ -no Did you speak to anyone other than the patient for history (EMS, parent, family, police, friend...)? What history was obtained from this source @ -no Did you review nursing and triage notes (agree or disagree)? Why? @ -agree Are old charts reviewed (outside hosp., previous admission, EMS record, old EKG, old radiological studies, urgent care reports/EKG's, fci records)? Re port findings @ -yes Differential Diagnosis (chest pain, altered mental status, abdominal pain women, abdominal pain men, vaginal bleeding, weakness, fever, dyspnea, syncope, headache, dizziness, GI bleed, back pain, seizure, CVA, palpatations, mental health, musculoskeletal)? @ -prior EKG interpreted by me (3pts min.). @ -yes X-rays interpreted by me (1pt min.). @ -yes CT interpreted by me (1pt min.). @ -no U/S interpreted by me (1pt. min.). @ -no What testing was considered but not performed or refused? (CT, X-rays, U/S, labs)? Why? @ -none What meds were considered but not given or refused? Why? @ -none Did you discuss the management of the patient with other professionals (prof jorge i.e. , PA, [employer], lab, RT, psych nurse, elementary school social worker, euclid operator, teacher, chief revenue officer, heel caser)? Give summary @ -no Was smoking cessation discussed for >3mins.? @ -no Was critical care preformed (if so, how long)? @ -no Were there social determinants of health that impacted care today? How? (Homelessness, low income, unemployed, alcoholism, drug addiction, transportation, low edu. Level, literacy, decrease access to med. care, alf, rehab)? @ -none Was there de-escalation of care discussed even if they declined (Discuss DNR or withdrawal of care, Hospice)? DNR status @ -no What co-morbidities impacted this encounter? (DM, HTN, Smoking, COPD, CAD, Cancer, CVA, ARF, Chemo, Hep., AIDS, mental health diagnosis, sleep apnea, morbid obesity)? @ -none Was patient admitted / discharged? Hospital course, mention meds given and route, prescriptions, significant lab abnormalities, going to OR and other pertinent info. @ - 72 female with chest pain and anxiety here in the ER. She feels improved throughout ER observation, patient does not further hospital admission or test ing. Patient can be discharged home Discharge Undiagnosed new problem with uncertain prognosis? @ -no Drug Therapy requiring intensive monitoring for toxicity (Heparin, Nitro, Insulin, Cardizem)? @ -no Were any procedures done? @ -no Diagnosis/symptom? @ -Chest pain history of heart disease Acute, or Chronic, or Acute on Chronic? @ -Acute Uncomplicated (without systemic symptoms) or Complicated (systemic symptoms)? @ -Complicated Side effects of treatment? @ -no Exacerbation, Progression, or Severe Exacerbation? @ -exacerbation Poses a threat to life or bodily function? How? (Chest pain, [place], [place], pneumonia, PE, COPD, DKA, ARF, appy, cholecystitis, CVA, Diverticulitis, Homicidal, Shey cidal, threat to staff... and all critical care pts) @ -yes extremity rate with chest pain (Richard Garvey) Reevaluation #5: Differential Chest Pain: Stable Angina, Unstable Angina, STEMI, NSTEMI Aortic Dissection, Pneumothorax, Musculoskeletal, Esophageal Spasm GERD, Cholecystitis, Pancreatitis, Zoster, this is not meant to be an all-inclusive list. Differential Dizziness: Benign paroxysmal positional Vertigo, Menieres disease, otitis media, acoustic neuroma, vertebrobasilar insufficiency, cerebellar stroke, encephalitis, hypovolemic, arrhythmia, coronary artery syndrome, anemia, this is not meant to be an all-inclusive list (Richard Garvey) EKG Findings - EKG Comments: EKG Findings:: EKG is sinus 61 NM 216 QRS 93 QTC 387 <Richard Garvey - Last Filed: 09/03/23 22:39> Medical Decision Making <Sanjay Major - Last Filed: 08/27/23 13:17> - Lab Data Result diagrams: 08/27/23 13:27 08/27/23 13:27 - Radiology Data Radiology results: report reviewed (Chest x-rays negative for acute disease), image reviewed <Richard Garvey - Last Filed: 09/03/23 22:39> - Medical Decision Making I performed a quick note portion of this chart signed Sanjay RODRIGUEZ (Sanjay Major) 72 female with chest pain and anxiety here in the ER. She feels improved throughout ER observation, patient does not further hospital admission or testing. Patient can be discharged home (Richard Garvey) - Lab Data Lab Results 08/27/23 08/27/23 08/27/23 Range/Units 13:27 13:27 13:27 WBC 8.0 (3.8-10.6) k/uL RBC 4.25 (3.80-5.40) m/uL Hgb 14.0 (11.4-16.0) gm/dL Hct 40.8 (34.0-46.0) % MCV 95.9 (80.0-100.0) fL MCH 33.0 (25.0-35.0) pg MCHC 34.4 (31.0-37.0) g/dL RDW 13.1 (11.5-15.5) % Plt Count 178 (150-450) k/uL MPV 7.6 Neutrophils % 79 % Lymphocytes % 15 % Monocytes % 3 % Eosinophils % 1 % Basophils % 0 % Neutrophils # 6.3 (1.3-7.7) k/uL Lymphocytes # 1.2 (1.0-4.8) k/uL Monocytes # 0.3 (0-1.0) k/uL Eosinophils # 0.1 (0-0.7) k/uL Basophils # 0.0 (0-0.2) k/uL PT 10.8 (10.0-12.5) sec INR 1.0 (<1.2) APTT 24.3 (22.0-30.0) sec D-Dimer 0.50 (<0.60) mg/L FEU Sodium 137 (137-145) mmol/L Potassium 4.5 (3.5-5.1) mmol/L Chloride 106 (98-107) mmol/L Carbon Dioxide 22 (22-30) mmol/L Anion Gap 9 mmol/L BUN 13 (7-17) mg/dL Creatinine 0.63 (0.52-1.04) mg/dL Est GFR (CKD-EPI)AfAm >90 (>60 ml/min/1.73 sqM) Est GFR (CKD-EPI)NonAf 90 (>60 ml/min/1.73 sqM) Glucose 111 H (74-99) mg/dL Plasma Lactic Acid Gavin (0.7-2.0) mmol/L Calcium 9.5 (8.4-10.2) mg/dL Total Bilirubin 1.2 (0.2-1.3) mg/dL AST 51 H (14-36) U/L ALT 25 (4-34) U/L Alkaline Phosphatase 66 (38-126) U/L Troponin I (0.000-0.034) ng/mL NT-Pro-B Natriuret Pep 907 pg/mL Total Protein 7.0 (6.3-8.2) g/dL Albumin 4.5 (3.5-5.0) g/dL Influenza Type A (PCR) (Not Detectd) Influenza Type B (PCR) (Not Detectd) RSV (PCR) (Not Detectd) SARS-CoV-2 (PCR) (Not Detectd) 08/27/23 08/27/23 08/27/23 Range/Units 13:27 13:27 13:27 WBC (3.8-10.6) k/uL RBC (3.80-5.40) m/uL Hgb (11.4-16.0) gm/dL Hct (34.0-46.0) % MCV (80.0-100.0) fL MCH (25.0-35.0) pg MCHC (31.0-37.0) g/dL RDW (11.5-15.5) % Plt Count (150-450) k/uL MPV Neutrophils % % Lymphocytes % % Monocytes % % Eosinophils % % Basophils % % Neutrophils # (1.3-7.7) k/uL Lymphocytes # (1.0-4.8) k/uL Monocytes # (0-1.0) k/uL Eosinophils # (0-0.7) k/uL Basophils # (0-0.2) k/uL PT (10.0-12.5) sec INR (<1.2) APTT (22.0-30.0) sec D-Dimer (<0.60) mg/L FEU Sodium (137-145) mmol/L Potassium (3.5-5.1) mmol/L Chloride (98-107) mmol/L Carbon Dioxide (22-30) mmol/L Anion Gap mmol/L BUN (7-17) mg/dL Creatinine (0.52-1.04) mg/dL Est GFR (CKD-EPI)AfAm (>60 ml/min/1.73 sqM) Est GFR (CKD-EPI)NonAf (>60 ml/min/1.73 sqM) Glucose (74-99) mg/dL Plasma Lactic Acid Gavin 1.7 (0.7-2.0) mmol/L Calcium (8.4-10.2) mg/dL Total Bilirubin (0.2-1.3) mg/dL AST (14-36) U/L ALT (4-34) U/L Alkaline Phosphatase (38-126) U/L Troponin I <0.012 (0.000-0.034) ng/mL NT-Pro-B Natriuret Pep pg/mL Total Protein (6.3-8.2) g/dL Albumin (3.5-5.0) g/dL Influenza Type A (PCR) Not Detected (Not Detectd) Influenza Type B (PCR) Not Detected (Not Detectd) RSV (PCR) Not Detected (Not Detectd) SARS-CoV-2 (PCR) Not Detected (Not Detectd) 08/27/23 Range/Units 17:41 WBC (3.8-10.6) k/uL RBC (3.80-5.40) m/uL Hgb (11.4-16.0) gm/dL Hct (34.0-46.0) % MCV (80.0-100.0) fL MCH (25.0-35.0) pg MCHC (31.0-37.0) g/dL RDW (11.5-15.5) % Plt Count (150-450) k/uL MPV Neutrophils % % Lymphocytes % % Monocytes % % Eosinophils % % Basophils % % Neutrophils # (1.3-7.7) k/uL Lymphocytes # (1.0-4.8) k/uL Monocytes # (0-1.0) k/uL Eosinophils # (0-0.7) k/uL Basophils # (0-0.2) k/uL PT (10.0-12.5) sec INR (<1.2) APTT (22.0-30.0) sec D-Dimer (<0.60) mg/L FEU Sodium (137-145) mmol/L Potassium (3.5-5.1) mmol/L Chloride (98-107) mmol/L Carbon Dioxide (22-30) mmol/L Anion Gap mmol/L BUN (7-17) mg/dL Creatinine (0.52-1.04) mg/dL Est GFR (CKD-EPI)AfAm (>60 ml/min/1.73 sqM) Est GFR (CKD-EPI)NonAf (>60 ml/min/1.73 sqM) Glucose (74-99) mg/dL Plasma Lactic Acid Gavin (0.7-2.0) mmol/L Calcium (8.4-10.2) mg/dL Total Bilirubin (0.2-1.3) mg/dL AST (14-36) U/L ALT (4-34) U/L Alkaline Phosphatase (38-126) U/L Troponin I <0.012 (0.000-0.034) ng/mL NT-Pro-B Natriuret Pep pg/mL Total Protein (6.3-8.2) g/dL Albumin (3.5-5.0) g/dL Influenza Type A (PCR) (Not Detectd) Influenza Type B (PCR) (Not Detectd) RSV (PCR) (Not Detectd) SARS-CoV-2 (PCR) (Not Detectd) Disposition <Sanjay Mjaor - Last Filed: 08/27/23 13:17> Is patient prescribed a controlled substance at d/c from ED?: No Time of Disposition: 18:45 <Richard Garvey - Last Filed: 09/03/23 22:39> Clinical Impression: Chest pain, Hx of CABG, Dyspnea Disposition: HOME SELF-CARE Condition: Fair Instructions (If sedation given, give patient instructions): Dyspnea (ED) Referrals: Ijeoma Alfredo [Primary Care Provider] - 1-2 days
[2023-08-27 13:46] VITALS: RESP 16
[2023-08-27 14:01] LABS: Partial Thromboplastin Time 24.3 sec (22.0-30.0); Prothrombin Time 10.8 sec (10.0-12.5)
[2023-08-27 14:04] LABS: Basophils % (A) 0 %; Eosinophils # (A) 0.1 k/uL (0-0.7); Eosinophils % (A) 1 %; HCT 40.8 % (34.0-46.0); Lymphocytes # (A) 1.2 k/uL (1.0-4.8); Lymphocytes % (A) 15 %; MCHC 34.4 g/dL (31.0-37.0); MCV 95.9 fL (80.0-100.0); Mean Platelet Volume 7.6; Monocytes # (A) 0.3 k/uL (0-1.0); Monocytes % (A) 3 %; Neutrophils # (A) 6.3 k/uL (1.3-7.7); Neutrophils % (A) 79 %; Platelet Count 178 k/uL (150-450); RBC 4.25 m/uL (3.80-5.40); RDW 13.1 % (11.5-15.5)
[2023-08-27 14:24] LABS: ALT 25 U/L (4-34); African American GFR (CKD) >90 (>60 ml/min/1.73 sqM); Anion Gap 9 mmol/L; Blood Urea Nitrogen 13 mg/dL (7-17); Calcium 9.5 mg/dL (8.4-10.2); Carbon Dioxide 22 mmol/L (22-30); Chloride 106 mmol/L (98-107); Glucose 111 mg/dL (74-99); Non-African American GFR(CKD) 90 (>60 ml/min/1.73 sqM); Sodium 137 mmol/L (137-145)
[2023-08-27 14:32] LABS: NT-Pro-B-Type Natriuretic Pept 907 pg/mL
--- NOTE | 2023-08-27 14:35 | XR ---
EXAMINATION TYPE: XR chest 2V DATE OF EXAM: 08/27/2023 COMPARISON: 09/24/2019 HISTORY: 72 year-old female shortness of breath, difficulty breathing TECHNIQUE: PA and lateral views FINDINGS: Heart upper limits of normal size. Median sternotomy wires are post-CABG clips. Liver lana device pr ojects over the left side of the heart. Aorta and pulmonary vasculature within normal limits. No cons olidation or pleural effusion. IMPRESSION: No acute cardiopulmonary process.
[2023-08-27 14:38] LABS: Potassium 4.5 mmol/L (3.5-5.1)
[2023-08-27 14:39] LABS: AST 51 U/L (14-36); Albumin 4.5 g/dL (3.5-5.0); Alkaline Phosphatase 66 U/L (38-126); Total Bilirubin 1.2 mg/dL (0.2-1.3)
[2023-08-27 19:35] VITALS: BP 164/84; PULSE 58; TEMP 97.8
== END 2023-08-27 19:05 | disposition home or self-care (01) ==
LOC: EC 13:05
DX: I99.8 Other disorder of circulatory system (principal); I44.0 Atrioventricular block, first degree; I25.10 Atherosclerotic heart disease of native coronary artery without angina pectoris; E78.5 Hyperlipidemia, unspecified; I10 Essential (primary) hypertension; M19.90 Unspecified osteoarthritis, unspecified site; F41.9 Anxiety disorder, unspecified; F32.A Depression, unspecified; Z79.1 Long term (current) use of non-steroidal anti-inflammatories (NSAID); Z79.899 Other long term (current) drug therapy; Z79.82 Long term (current) use of aspirin; Z88.8 Allergy status to other drugs, medicaments and biological substances; Z95.1 Presence of aortocoronary bypass graft; Z20.822 Contact with and (suspected) exposure to COVID-19
CPT/HCPCS: 36415; 71046; 80053; 83605; 83880; 84484; 85025; 85379; 85610; 85730; 87636; 93005; 99285

== ENCOUNTER 2024-09-09 00:34 | Emergency (ER) | payer MEDICARE, BC ==
[2024-09-09 00:46] VITALS: RESP 19; TEMP 97.7
[2024-09-09 01:17] LABS: Basophils % (A) 0 %; Eosinophils # (A) 0.2 k/uL (0-0.7); Eosinophils % (A) 3 %; HCT 39.5 % (34.0-46.0); HGB 12.9 gm/dL (11.4-16.0); Lymphocytes # (A) 2.4 k/uL (1.0-4.8); Lymphocytes % (A) 30 %; MCH 31.8 pg (25.0-35.0); MCHC 32.6 g/dL (31.0-37.0); MCV 97.7 fL (80.0-100.0); Mean Platelet Volume 6.9; Monocytes # (A) 0.4 k/uL (0-1.0); Monocytes % (A) 5 %; Neutrophils # (A) 4.7 k/uL (1.3-7.7); Neutrophils % (A) 60 %; Platelet Count 207 k/uL (150-450); RBC 4.05 m/uL (3.80-5.40); RDW 13.3 % (11.5-15.5); WBC 7.9 k/uL (3.8-10.6)
[2024-09-09 01:28] LABS: ALT 28 U/L (4-34); AST 48 U/L (14-36); African American GFR (CKD) 72 (>60 ml/min/1.73 sqM); Albumin 4.3 g/dL (3.5-5.0); Alkaline Phosphatase 47 U/L (38-126); Anion Gap 6 mmol/L; Blood Urea Nitrogen 24 mg/dL (7-17); Calcium 9.4 mg/dL (8.4-10.2); Carbon Dioxide 21 mmol/L (22-30); Chloride 108 mmol/L (98-107); Glucose 87 mg/dL (74-99); Lipase 255 U/L (23-300); Non-African American GFR(CKD) 63 (>60 ml/min/1.73 sqM); Sodium 135 mmol/L (137-145); Total Bilirubin 1.1 mg/dL (0.2-1.3); Total Protein 6.6 g/dL (6.3-8.2)
[2024-09-09 01:29] LABS: Potassium 4.5 mmol/L (3.5-5.1)
[2024-09-09 02:01] LABS: Appearance,Urine Clear (Clear); Bilirubin,Urine Negative (Negative); Blood,Urine Negative (Negative); Color,Urine Colorless; Glucose,Urine (UA) Negative (Negative); Ketones,Urine Negative (Negative); Leukocyte Esterase,Urine Negative (Negative); Nitrite,Urine Negative (Negative); PH, Urine 5.5 (5.0-8.0); Protein,Urine Negative (Negative); Specific Gravity,Urine 1.027 (1.001-1.035); Urobilinogen,Urine <2.0 mg/dL (<2.0)
--- NOTE | 2024-09-09 03:20 | CT ---
EXAM: CT Abdomen and Pelvis With Intravenous Contrast CLINICAL HISTORY: ITS.REASON CT Reason: rlq pain TECHNIQUE: Axial computed tomography images of the abdomen and pelvis with intravenous contrast. CTDI is 18.6 mGy and DLP is 830.9 mGy-cm. This CT exam was performed using one or more of the following dose reduction techniques: automated exposure control, adjustment of the mA and/or kV according to patient size, and/or use of iterative reconstruction technique. COMPARISON: No relevant prior studies available. FINDINGS: Lung bases: Unremarkable. No mass. No consolidation. ABDOMEN: Liver: Unremarkable. No mass. Gallbladder and bile ducts: Unremarkable. No calcified stones. No ductal dilation. Pancreas: Unremarkable. No mass. No ductal dilation. Spleen: Unremarkable. No splenomegaly. Adrenals: Unremarkable. No mass. Kidneys and ureters: Unremarkable. No solid mass. No hydronephrosis. Stomach and bowel: Diverticulosis, without acute diverticulitis. No small bowel obstruction. No free intraperitoneal air. PELVIS: Appendix: No findings to suggest acute appendicitis. Bladder: Unremarkable. No mass. Reproductive: Unremarkable as visualized. ABDOMEN and PELVIS: Intraperitoneal space: Unremarkable. No free air. No significant fluid collection. Bones/joints: Degenerative changes of the spine. No acute fracture. No dislocation. Soft tissues: Unremarkable. Vasculature: Atherosclerotic changes of the aorta. No abdominal aortic aneurysm. Lymph nodes: Unremarkable. No enlarged lymph nodes. IMPRESSION: Diverticulosis, without acute diverticulitis. No small bowel obstruction. No free intraperitoneal air.
[2024-09-09] MEDS: MORPHINE SULFATE 2 MG/ML SYRINGE IVP STA (03:55)
--- NOTE | 2024-09-09 04:21 | ED ---
Abdominal Pain HPI - General Chief Complaint: Abdominal Pain Stated Complaint: abd pain Time Seen by Provider: 09/09/24 00:48 Source: patient Mode of arrival: ambulatory Limitations: no limitations - History of Present Illness Initial Comments: 73-year-old female who presents emergency department reporting right lower abdominal pain. States that the pain is going on for the past 6 weeks. She has seen her primary care doctor for this complaint. Reports that she had an ultrasound and x-ray performed. They have not found the etiology of her symptoms. Reports that tonight the pain got significantly worse. She felt a bulge in the area. She denies diarrhea, constipation, black or bloody stools. No vaginal bleeding or discharge. No urinary complaints to include dysuria, hematuria or difficulty voiding. No numbness, tingling or weakness in her lower extremities. No chest pain or shortness of breath. No other alleviating, precipitating or modifying factors - Related Data Home Medications Medication Instructions Recorded Confirmed Atorvastatin Calcium [Lipitor] 80 mg PO HS 05/08/14 09/29/21 Colesevelam [Welchol] 1,875 mg PO BID 05/08/14 09/29/21 buPROPion HCL [Wellbutrin XL] 300 mg PO HS 05/08/14 09/29/21 Aspirin 81 mg PO DAILY 09/25/19 09/29/21 Lisinopril-Hctz 10-12.5 mg 1 tab PO HS 09/25/19 09/29/21 [Zestoretic 10-12.5] allopurinoL [Zyloprim] 300 mg PO DAILY 09/25/19 09/29/21 Multivitamin [Multivitamins Adult 1 tab PO DAILY 11/25/19 09/29/21 Gummies] Cbd Oil (Unknown Dose) 1 cap PO DAILY 05/27/20 09/29/21 Amoxic-Pot Clav 500-125 mg 1 tab PO BID 09/26/21 09/29/21 [Augmentin 500-125 mg] Multivit-Min/Folic Acid/Biotin 133.3 mcg PO DAILY 09/26/21 09/29/21 [Hair, Skin and Nails Softgel] ALPRAZolam [Xanax] 0.5 mg PO BID 09/29/21 09/29/21 Nitroglycerin Sl Tabs [Nitrostat] 0.4 mg SUBLINGUAL Q5M PRN 09/29/21 09/29/21 Prevagen Extra Strength Capsule 1 cap PO DAILY 09/29/21 09/29/21 Previous Rx's Medication Instructions Recorded Metoprolol Tartrate [Lopressor] 12.5 mg PO BID tab 09/26/19 Clopidogrel [Plavix] 75 mg PO DAILY #90 tab 09/28/21 Isosorbide Mononitrate ER [Imdur] 30 mg PO DAILY 30 Days #30 tablet 10/01/21 Acetaminophen-Codeine 300-30mg 1 tab PO Q4H PRN #18 tablet 09/09/24 [Tylenol #3] Dicyclomine [Bentyl] 20 mg PO QID #15 tablet 09/11/24 Allergies Allergy/AdvReac Type Severity Reaction Status Date / Time tramadol AdvReac Nausea & Verified 09/11/24 04:12 Vomiting Review of Systems ROS Statement: Those systems with pertinent positive or pertinent negative responses have been documented in the HPI. ROS Other: All systems not noted in ROS Statement are negative. Past Medical History Past Medical History: Atrial Fibrillation, Coronary Artery Disease (CAD), Chest Pain / Angina, Hyperlipidemia, Hypertension, Osteoarthritis (OA) Additional Past Medical History / Comment(s): Hx of A-fib & tachycardia, IBS, colitis, arthritis bilateral wrists/ankles and back, Hx. of Diverticulitis, tinnitis bilaterally, UTI, elevated uric acid level with gout in L great toe/L hand. History of Any Multi-Drug Resistant Organisms: None Reported Past Surgical History: Heart Catheterization With Stent Additional Past Surgical History / Comment(s): 1998 CABG 2 vessel, bilateral carpal tunnel releases, bilateral total knees with L side done twice, one dental implant, colonoscopy. EP study, back surgery. 3 stents placed 09/26/21. Past Anesthesia/Blood Transfusion Reactions: No Reported Reaction Date of Last Stent Placement:: 09/27/21 Past Psychological History: Anxiety, Depression Smoking Status: Former smoker Past Alcohol Use History: None Reported Past Drug Use History: None Reported - Past Family History Mother Family Medical History: Diabetes Mellitus Father Family Medical History: Myocardial Infarction (ID) Additional Family Medical History / Comment(s): DAD at 48 of cardiac problems . DADS [place] AT AGE 50 FROM ID AND HIS FATHER AT AGE 36 FROM ID. Brother(s) Family Medical History: Coronary Artery Disease (CAD) Additional Family Medical History / Comment(s): CABG Sister(s) Family Medical History: Coronary Artery Disease (CAD) Additional Family Medical History / Comment(s): QUAD CABG THEN WENT ON TO HAVE TOTAL OF 7 STENTS AFTERWARDS. General Exam Limitations: no limitations General appearance: alert, in no apparent distress Head exam: Present: atraumatic, normocephalic, normal inspection Eye exam: Present: normal appearance, PERRL, EOMI. Absent: scleral icterus, conjunctival injection, periorbital swelling ENT exam: Present: normal exam, mucous membranes moist Neck exam: Present: normal inspection. Absent: tenderness, meningismus, lymphadenopathy Respiratory exam: Present: normal lung sounds bilaterally. Absent: respiratory distress, wheezes, rales, rhonchi, stridor Cardiovascular Exam: Present: regular rate, normal rhythm, normal heart sounds. Absent: systolic murmur, diastolic murmur, rubs, gallop, clicks GI/Abdominal exam: Present: soft, tenderness (Right lower quadrant), normal bowel sounds. Absent: distended, guarding, rebound, rigid Extremities exam: Present: normal inspection, full ROM, normal capillary refill. Absent: tenderness, pedal edema, joint swelling, calf tenderness Back exam: Present: normal inspection Neurological exam: Present: alert, oriented X3, CN II-XII intact Psychiatric exam: Present: normal affect, normal mood Skin exam: Present: warm, dry, intact, normal color. Absent: rash Course Vital Signs 09/09/24 09/09/24 09/09/24 00:42 03:52 04:36 Temperature 97.7 F Pulse Rate 64 65 67 Respiratory 19 Rate Blood Pressure 160/93 168/85 152/68 O2 Sat by Pulse 95 Oximetry Medical Decision Making - Medical Decision Making Was pt. sent in by a medical professional or institution (, PA, ROTARY ADJUSTER, urgent care, hospital, or jail...) When possible be specific @ -No Did you speak to anyone other than the patient for history (EMS, parent, family, police, friend...)? What history was obtained from this source @ -No Did you review nursing and triage notes (agree or disagree)? Why? @ -I reviewed and agree with nursing and triage notes Were old charts reviewed (outside hosp., previous admission, EMS record, old EKG, old radiological studies, urgent care reports/EKG's, jail records)? Report findings @ -No old charts were reviewed Differential Diagnosis (chest pain, altered mental status, abdominal pain women, abdominal pain men, vaginal bleeding, weakness, fever, dyspnea, syncope, headache, dizziness, GI bleed, back pain, seizure, CVA, palpatations, mental health, musculoskeletal)? @ -Differential Abdominal Pain Women: Appendicitis, Cholecystitis, diverticulosis, ischemic bowel, pancreatitis, hepatitis, UTI, gastroenteritis, AAA, incarcerated hernia, bowel obstruction, constipation, inflammatory bowel, hepatitis, peptic ulcer disease, splenic infarction, perforated viscus, vulvitis, ovarian torsion, PID, kidney stone, placenta abruption, this is not meant to be an all-inclusive list EKG interpreted by me (3pts min.). @ -Not done X-rays interpreted by me (1pt min.). @ -None done CT interpreted by me (1pt min.). @ -Yes and demonstrates no acute process U/S interpreted by me (1pt. min.). @ -None done What testing was considered but not performed or refused? (CT, X-rays, U/S, labs)? Why? @ -None What meds were considered but not given or refused? Why? @ -None Did you discuss the management of the patient with other professionals (professionals i.e. , PA, ROTARY ADJUSTER, lab, RT, psych nurse, vp digital marketing social media and crm, superintendent plant protection, teacher, supply officer, case management assistant)? Give summary @ -No Was smoking cessation discussed for >3mins.? @ -No Was critical care preformed (if so, how long)? @ -No Were there social determinants of health that impacted care today? How? (Homelessness, low income, unemployed, alcoholism, drug addiction, transportation, low edu. Level, literacy, decrease access to med. care, retirement, rehab)? @ -No Was there de-escalation of care discussed even if they declined (Discuss DNR or withdrawal of care, Hospice)? DNR status @ -No What co-morbidities impacted this encounter? (DM, HTN, Smoking, COPD, CAD, Cancer, CVA, ARF, Chemo, Hep., AIDS, mental health diagnosis, sleep apnea, morbid obesity)? @ -Coronary artery disease Was patient admitted / discharged? Hospital course, mention meds given and route, prescriptions, significant lab abnormalities, going to OR and other pertinent info. @ -Upon arrival patient seen and evaluated in bed 3. Thorough history and physical exam was performed. IV access established. Laboratory studies were conducted. CT of the abdomen pelvis was performed as there is high concern for appendicitis. Results are discussed with the patient. She was given a dose of pain medication and is pain-free at this time. I did discuss the diagnosis, differential and treatment options. At this time the patient will be discharged home. Instructed follow-up with her primary care doctor for further workup of her symptoms. Recommended she follow-up within 2 to 4 days and return for any new or worsening symptoms. Patient was agreeable plan she was discharged home in stable condition Undiagnosed new problem with uncertain prognosis? @ -No Drug Therapy requiring intensive monitoring for toxicity (Heparin, Nitro, Insulin, Cardizem)? @ -No Were any procedures done? @ -No Diagnosis/symptom? @ -Acute right lower quadrant abdominal pain Acute, or Chronic, or Acute on Chronic? @ -Acute Uncomplicated (without systemic symptoms) or Complicated (systemic symptoms)? @ -Complicated Side effects of treatment? @ -No Exacerbation, Progression, or Severe Exacerbation? @ -No Poses a threat to life or bodily function? How? (Chest pain, USA, ID, pneumonia, PE, COPD, DKA, ARF, appy, cholecystitis, CVA, Diverticulitis, Homicidal, Suicidal, threat to staff... and all critical care pts) @ -No - Lab Data Result diagrams: 09/09/24 01:08 09/09/24 01:08 Lab Results 09/09/24 09/09/24 09/09/24 Range/Units 01:08 01:08 01:08 WBC 7.9 (3.8-10.6) k/uL RBC 4.05 (3.80-5.40) m/uL Hgb 12.9 (11.4-16.0) gm/dL Hct 39.5 (34.0-46.0) % MCV 97.7 (80.0-100.0) fL MCH 31.8 (25.0-35.0) pg MCHC 32.6 (31.0-37.0) g/dL RDW 13.3 (11.5-15.5) % Plt Count 207 (150-450) k/uL MPV 6.9 Neutrophils % 60 % Lymphocytes % 30 % Monocytes % 5 % Eosinophils % 3 % Basophils % 0 % Neutrophils # 4.7 (1.3-7.7) k/uL Lymphocytes # 2.4 (1.0-4.8) k/uL Monocytes # 0.4 (0-1.0) k/uL Eosinophils # 0.2 (0-0.7) k/uL Basophils # 0.0 (0-0.2) k/uL Sodium 135 L (137-145) mmol/L Potassium 4.5 (3.5-5.1) mmol/L Chloride 108 H (98-107) mmol/L Carbon Dioxide 21 L (22-30) mmol/L Anion Gap 6 mmol/L BUN 24 H (7-17) mg/dL Creatinine 0.91 (0.52-1.04) mg/dL Est GFR (CKD-EPI)AfAm 72 (>60 ml/min/1.73 sqM) Est GFR (CKD-EPI)NonAf 63 (>60 ml/min/1.73 sqM) Glucose 87 (74-99) mg/dL Plasma Lactic Acid Gavin 0.7 (0.7-2.0) mmol/L Calcium 9.4 (8.4-10.2) mg/dL Total Bilirubin 1.1 (0.2-1.3) mg/dL AST 48 H (14-36) U/L ALT 28 (4-34) U/L Alkaline Phosphatase 47 (38-126) U/L Total Protein 6.6 (6.3-8.2) g/dL Albumin 4.3 (3.5-5.0) g/dL Lipase 255 (23-300) U/L Urine Color Urine Appearance (Clear) Urine pH (5.0-8.0) Ur Specific [place] (1.001-1.035) Urine Protein (Negative) Urine Glucose (UA) (Negative) Urine Ketones (Negative) Urine Blood (Negative) Urine Nitrite (Negative) Urine Bilirubin (Negative) Urine Urobilinogen (<2.0) mg/dL Ur Leukocyte Esterase (Negative) 09/09/24 Range/Units 01:57 WBC (3.8-10.6) k/uL RBC (3.80-5.40) m/uL Hgb (11.4-16.0) gm/dL Hct (34.0-46.0) % MCV (80.0-100.0) fL MCH (25.0-35.0) pg MCHC (31.0-37.0) g/dL RDW (11.5-15.5) % Plt Count (150-450) k/uL MPV Neutrophils % % Lymphocytes % % Monocytes % % Eosinophils % % Basophils % % Neutrophils # (1.3-7.7) k/uL Lymphocytes # (1.0-4.8) k/uL Monocytes # (0-1.0) k/uL Eosinophils # (0-0.7) k/uL Basophils # (0-0.2) k/uL Sodium (137-145) mmol/L Potassium (3.5-5.1) mmol/L Chloride (98-107) mmol/L Carbon Dioxide (22-30) mmol/L Anion Gap mmol/L BUN (7-17) mg/dL Creatinine (0.52-1.04) mg/dL Est GFR (CKD-EPI)AfAm (>60 ml/min/1.73 sqM) Est GFR (CKD-EPI)NonAf (>60 ml/min/1.73 sqM) Glucose (74-99) mg/dL Plasma Lactic Acid Gavin (0.7-2.0) mmol/L Calcium (8.4-10.2) mg/dL Total Bilirubin (0.2-1.3) mg/dL AST (14-36) U/L ALT (4-34) U/L Alkaline Phosphatase (38-126) U/L Total Protein (6.3-8.2) g/dL Albumin (3.5-5.0) g/dL Lipase (23-300) U/L Urine Color Colorless Urine Appearance Clear (Clear) Urine pH 5.5 (5.0-8.0) Ur Specific [place] 1.027 (1.001-1.035) Urine Protein Negative (Negative) Urine Glucose (UA) Negative (Negative) Urine Ketones Negative (Negative) Urine Blood Negative (Negative) Urine Nitrite Negative (Negative) Urine Bilirubin Negative (Negative) Urine Urobilinogen <2.0 (<2.0) mg/dL Ur Leukocyte Esterase Negative (Negative) Disposition Clinical Impression: RLQ abdominal pain Disposition: HOME SELF-CARE Condition: Stable Instructions (If sedation given, give patient instructions): Abdominal Pain (ED) Additional Instructions: I recommend that you follow-up with your primary care doctor. She may refer you to GI for a colonoscopy. Take the Tylenol threes as needed for breakthrough pain. I recommend that you use MiraLAX in addition to help with any constipation. Return to the emergency department for any new or worsening symptoms Prescriptions: Acetaminophen-Codeine 300-30mg [Tylenol #3] 1 tab PO Q4H PRN #18 tablet PRN Reason: pain Is patient prescribed a controlled substance at d/c from ED?: Yes When asked, does pt state using other controlled substances?: No If prescribed controlled substance>3 days was MAPS reviewed?: Prescribed <3 Days If opioid is for acute pain is fill amount 7 days or less?: Yes Referrals: Ijeoma Alfredo [Primary Care Provider] - 1-2 days Zoila Wilkins MD [STAFF PHYSICIAN] - 1-2 days Time of Disposition: 04:21
[2024-09-09 04:37] VITALS: BP 152/68; PULSE 67
== END 2024-09-09 04:37 | disposition home or self-care (01) ==
LOC: EC 00:34
DX: R10.31 Right lower quadrant pain (principal); I25.10 Atherosclerotic heart disease of native coronary artery without angina pectoris; Z79.899 Other long term (current) drug therapy; Z88.5 Allergy status to narcotic agent; Z87.891 Personal history of nicotine dependence
CPT/HCPCS: 36415; 80053; 83605; 83690; 85025; 81003; 74177; 99284; 96374; J2270; Q9967

== ENCOUNTER 2024-09-11 04:07 | Emergency (ER) | payer MEDICARE, BC ==
[2024-09-11 04:54] LABS: Basophils % (A) 0 %; Eosinophils # (A) 0.2 k/uL (0-0.7); Eosinophils % (A) 2 %; HCT 39.6 % (34.0-46.0); HGB 13.3 gm/dL (11.4-16.0); Lymphocytes # (A) 1.6 k/uL (1.0-4.8); Lymphocytes % (A) 20 %; MCH 32.6 pg (25.0-35.0); MCHC 33.5 g/dL (31.0-37.0); MCV 97.5 fL (80.0-100.0); Mean Platelet Volume 7.2; Monocytes # (A) 0.4 k/uL (0-1.0); Monocytes % (A) 5 %; Neutrophils % (A) 72 %; Platelet Count 194 k/uL (150-450); RBC 4.06 m/uL (3.80-5.40); RDW 13.3 % (11.5-15.5); WBC 8.3 k/uL (3.8-10.6)
[2024-09-11 05:01] LABS: Appearance,Urine Clear (Clear); Bilirubin,Urine Negative (Negative); Blood,Urine Negative (Negative); Color,Urine Colorless; Glucose,Urine (UA) Negative (Negative); Ketones,Urine Negative (Negative); Leukocyte Esterase,Urine Moderate (Negative); Nitrite,Urine Negative (Negative); Protein,Urine Negative (Negative); RBC,Urine 2 /hpf (0-5); Specific Gravity,Urine 1.014 (1.001-1.035); Squamous Epithelial Cell,Urine <1 /hpf (0-4); Urobilinogen,Urine <2.0 mg/dL (<2.0); WBC,Urine 4 /hpf (0-5)
[2024-09-11 05:06] LABS: ALT 24 U/L (4-34); AST 32 U/L (14-36); African American GFR (CKD) 72 (>60 ml/min/1.73 sqM); Albumin 4.3 g/dL (3.5-5.0); Alkaline Phosphatase 58 U/L (38-126); Amylase 83 U/L (30-110); Anion Gap -1 mmol/L; Blood Urea Nitrogen 22 mg/dL (7-17); C Reactive Protein <0.5 mg/dL (<1.0); Calcium 9.4 mg/dL (8.4-10.2); Carbon Dioxide 27 mmol/L (22-30); Chloride 107 mmol/L (98-107); Glucose 109 mg/dL (74-99); Lipase 178 U/L (23-300); Non-African American GFR(CKD) 62 (>60 ml/min/1.73 sqM); Sodium 133 mmol/L (137-145); Total Bilirubin 0.6 mg/dL (0.2-1.3); Total Protein 6.6 g/dL (6.3-8.2)
[2024-09-11] MEDS: DICYCLOMINE 10 MG/ML 2 ML AMP IM STA (05:24)
--- NOTE | 2024-09-11 06:01 | ED ---
Abdominal Pain HPI - General Chief Complaint: Abdominal Pain Stated Complaint: Side pain Time Seen by Provider: 09/11/24 04:36 Source: patient Mode of arrival: ambulatory Limitations: no limitations - History of Present Illness Initial Comments: This patient is a 74-year-old woman who presents to have evaluation of right sided abdominal pain. The patient states that she has been having problems with constipation and hard bowel movements going back a number of days. She had been seen at emergency department, had imaging and was told that she had an element of constipation. The patient states that she has not really had much in way of bowel movement. She notes when she presses on her abdomen she feels some firmness on the right side. Patient is not having fever or chills. No nausea or vomiting. No change in urination she has not noted bloody or tarry stools MD Complaint: abdominal pain Onset/Timin -: days(s) Location: RLQ, R flank Radiation: none Migration to: no migration Severity: severe Quality: cramping, aching Consistency: colicky Improves With: nothing Worsens With: nothing Associated Symptoms: constipation - Related Data Home Medications Medication Instructions Recorded Confirmed Atorvastatin Calcium [Lipitor] 80 mg PO HS 05/08/14 09/29/21 Colesevelam [Welchol] 1,875 mg PO BID 05/08/14 09/29/21 buPROPion HCL [Wellbutrin XL] 300 mg PO HS 05/08/14 09/29/21 Aspirin 81 mg PO DAILY 09/25/19 09/29/21 Lisinopril-Hctz 10-12.5 mg 1 tab PO HS 09/25/19 09/29/21 [Zestoretic 10-12.5] allopurinoL [Zyloprim] 300 mg PO DAILY 09/25/19 09/29/21 Multivitamin [Multivitamins Adult 1 tab PO DAILY 11/25/19 09/29/21 Gummies] Cbd Oil (Unknown Dose) 1 cap PO DAILY 05/27/20 09/29/21 Amoxic-Pot Clav 500-125 mg 1 tab PO BID 09/26/21 09/29/21 [Augmentin 500-125 mg] Multivit-Min/Folic Acid/Biotin 133.3 mcg PO DAILY 09/26/21 09/29/21 [Hair, Skin and Nails Softgel] ALPRAZolam [Xanax] 0.5 mg PO BID 09/29/21 09/29/21 Nitroglycerin Sl Tabs [Nitrostat] 0.4 mg SUBLINGUAL Q5M PRN 09/29/21 09/29/21 Prevagen Extra Strength Capsule 1 cap PO DAILY 09/29/21 09/29/21 Previous Rx's Medication Instructions Recorded Metoprolol Tartrate [Lopressor] 12.5 mg PO BID tab 09/26/19 Clopidogrel [Plavix] 75 mg PO DAILY #90 tab 09/28/21 Isosorbide Mononitrate ER [Imdur] 30 mg PO DAILY 30 Days #30 tablet 10/01/21 Acetaminophen-Codeine 300-30mg 1 tab PO Q4H PRN #18 tablet 09/09/24 [Tylenol #3] Dicyclomine [Bentyl] 20 mg PO QID #15 tablet 09/11/24 Allergies Allergy/AdvReac Type Severity Reaction Status Date / Time tramadol AdvReac Nausea & Verified 09/11/24 04:12 Vomiting Review of Systems ROS Statement: Those systems with pertinent positive or pertinent negative responses have been documented in the HPI. ROS Other: All systems not noted in ROS Statement are negative. Constitutional: Denies: fever, chills, weakness Respiratory: Denies: cough, dyspnea Cardiovascular: Denies: chest pain, palpitations, edema Gastrointestinal: Reports: abdominal pain, constipation. Denies: nausea, vomiting, diarrhea, melena, hematochezia Genitourinary: Denies: dysuria, frequency, hematuria Musculoskeletal: Denies: back pain Skin: Denies: rash Neurological: Denies: headache, weakness Past Medical History Past Medical History: Atrial Fibrillation, Coronary Artery Disease (CAD), Chest Pain / Angina, Hyperlipidemia, Hypertension, Osteoarthritis (OA) Additional Past Medical History / Comment(s): Hx of A-fib & tachycardia, IBS, colitis, arthritis bilateral wrists/ankles and back, Hx. of Diverticulitis, tinnitis bilaterally, UTI, elevated uric acid level with gout in L great toe/L hand. History of Any Multi-Drug Resistant Organisms: None Reported Past Surgical History: Heart Catheterization With Stent Additional Past Surgical History / Comment(s): 1998 CABG 2 vessel, bilateral car pal tunnel releases, bilateral total knees with L side done twice, one dental implant, colonoscopy. EP study, back surgery. 3 stents placed 09/26/21. Past Anesthesia/Blood Transfusion Reactions: No Reported Reaction Date of Last Stent Placement:: 09/27/21 Past Psychological History: Anxiety, Depression Smoking Status: Former smoker Past Alcohol Use History: None Reported Past Drug Use History: None Reported - Past Family History Mother Family Medical History: Diabetes Mellitus Father Family Medical History: Myocardial Infarction (VT) Additional Family Medical History / Comment(s): DAD at 48 of cardiac problems . DADS [place] AT AGE 50 FROM [place] AND HIS FATHER AT AGE 36 FROM [place]. Brother(s) Family Medical History: Coronary Artery Disease (CAD) Additional Family Medical History / Comment(s): CABG Sister(s) Family Medical History: Coronary Artery Disease (CAD) Additional Family Medical History / Comment(s): QUAD CABG THEN WENT ON TO HAVE TOTAL OF 7 STENTS AFTERWARDS. General Exam Limitations: no limitations General appearance: alert, in no apparent distress Head exam: Present: atraumatic, normocephalic Eye exam: Present: normal appearance. Absent: scleral icterus, conjunctival injection Neck exam: Present: normal inspection Respiratory exam: Present: normal lung sounds bilaterally. Absent: respiratory distress, wheezes, rales, rhonchi, stridor, accessory muscle use Cardiovascular Exam: Present: regular rate, normal rhythm, normal heart sounds. Absent: systolic murmur, diastolic murmur, rubs, gallop GI/Abdominal exam: Present: soft. Absent: distended, tenderness, guarding, rebound, rigid, mass, pulsatile mass, hernia Extremities exam: Present: normal inspection, normal capillary refill. Absent: pedal edema, calf tenderness Back exam: Present: normal inspection. Absent: CVA tenderness (R), CVA tenderness (L) Neurological exam: Present: alert Skin exam: Present: warm, dry, intact, normal color. Absent: rash Course Vital Signs 09/11/24 09/11/24 09/11/24 04:09 05:42 06:20 Temperature 98.3 F 98.3 F 98.4 F Pulse Rate 76 60 61 Respiratory 18 17 18 Rate Blood Pressure 155/106 151/82 165/81 O2 Sat by Pulse 95 95 98 Oximetry Medical Decision Making - Medical Decision Making Was pt. sent in by a medical professional or institution (Dr., PA, DATA ARCHITECT MANAGER, urgent care, hospital, or longterm...) When possible be specific @ -[No] Did you speak to anyone other than the patient for history (EMS, parent, family, police, friend...)? What history was obtained from this source @ -[No] Did you review nursing and triage notes (agree or disagree)? Why? @ -[I reviewed and agree with nursing and triage notes] Were old charts reviewed (outside hosp., previous admission, EMS record, old EKG, old radiological studies, urgent care reports/EKG's, longterm records)? Report findings @ -[No old charts were reviewed] Differential Diagnosis (chest pain, altered mental status, abdominal pain women, abdominal pain men, vaginal bleeding, weakness, fever, dyspnea, syncope, headache, dizziness, GI bleed, back pain, seizure, CVA, palpatations, mental health, musculoskeletal)? @ -[Differential Abdominal Pain Women: Appendicitis, Cholecystitis, diverticulosis, ischemic bowel, pancreatitis, hepatitis, UTI, gastroenteritis, AAA, incarcerated hernia, bowel obstruction, constipation, inflammatory bowel, hepatitis, peptic ulcer disease, splenic inf arction, perforated viscus, vulvitis, ovarian torsion, PID, kidney stone, placenta abruption, this is not meant to be an all-inclusive list EKG interpreted by me (3pts min.). @ -[As above] X-rays interpreted by me (1pt min.). @ -[None done] CT interpreted by me (1pt min.). @ -[None done] U/S interpreted by me (1pt. min.). @ -[None done] What testing was considered but not performed or refused? (CT, X-rays, U/S, labs)? Why? @ -[None] What meds were considered but not given or refused? Why? @ -[None] Did you discuss the management of the patient with other professionals (professionals i.e. , PA, DATA ARCHITECT MANAGER, lab, RT, psych nurse, health social work professor, concrete pointer, teacher, community service officer, wrapper caser)? Give summary @ -[No] Was smoking cessation discussed for >3mins.? @ -[No] Was critical care preformed (if so, how long)? @ -[No] Were there social determinants of health that impacted care today? How? (Homelessness, low income, unemployed, alcoholism, drug addiction, transportation, low edu. Level, literacy, decrease access to med. care, retirement, rehab)? @ -[No] Was there de-escalation of care discussed even if they declined (Discuss DNR or withdrawal of care, Hospice)? DNR status @ -[No] What co-morbidities impacted this encounter? (DM, HTN, Smoking, COPD, CAD, Cancer, CVA, ARF, Chemo, Hep., AIDS, mental health diagnosis, sleep apnea, morbid obesity)? @ -[None] Was patient admitted / discharged? Hospital course, mention meds given and route, prescriptions, significant lab abnormalities, going to OR and other pertinent info. @ -[Patient is 74-year-old woman here with abdominal pain and constipation. The exam benign, no evidence of peritonitis or acute surgical condition. Discussed further treatment and at this point patient would like to try taking GoLytely at home. We discussed appropriate use. Discussed appropriate further care as well as return parameters Undiagnosed new problem with uncertain prognosis? @ -[No] Drug Therapy requiring intensive monitoring for toxicity (Heparin, Nitro, Insulin, Cardizem)? @ -[No] Were any procedures done? @ -[No] Diagnosis/symptom? @ -[Acute abdominal pain Constipation Acute, or Chronic, or Acute on Chronic? @ -Acute Uncomplicated (without systemic symptoms) or Complicated (systemic symptoms)? @ -[Uncomplicated Side effects of treatment? @ -[No] Exacerbation, Progression, or Severe Exacerbation? @ -[No] Poses a threat to life or bodily function? How? (Chest pain, [place], [place], pneumonia, PE, COPD, DKA, ARF, appy, cholecystitis, CVA, Diverticulitis, Homicidal, Suicidal, threat to staff... and all critical care pts) @ -[No] - Lab Data Result diagrams: 09/11/24 04:43 09/11/24 04:43 Lab Results 09/11/24 09/11/24 09/11/24 Range/Units 04:43 04:43 04:43 WBC 8.3 (3.8-10.6) k/uL RBC 4.06 (3.80-5.40) m/uL Hgb 13.3 (11.4-16.0) gm/dL Hct 39.6 (34.0-46.0) % MCV 97.5 (80.0-100.0) fL MCH 32.6 (25.0-35.0) pg MCHC 33.5 (31.0-37.0) g/dL RDW 13.3 (11.5-15.5) % Plt Count 194 (150-450) k/uL MPV 7.2 Neutrophils % 72 % Lymphocytes % 20 % Monocytes % 5 % Eosinophils % 2 % Basophils % 0 % Neutrophils # 6.0 (1.3-7.7) k/uL Lymphocytes # 1.6 (1.0-4.8) k/uL Monocytes # 0.4 (0-1.0) k/uL Eosinophils # 0.2 (0-0.7) k/uL Basophils # 0.0 (0-0.2) k/uL Sodium 133 L (137-145) mmol/L Potassium 4.0 (3.5-5.1) mmol/L Chloride 107 (98-107) mmol/L Carbon Dioxide 27 (22-30) mmol/L Anion Gap -1 mmol/L BUN 22 H (7-17) mg/dL Creatinine 0.92 (0.52-1.04) mg/dL Est GFR (CKD-EPI)AfAm 72 (>60 ml/min/1.73 sqM) Est GFR (CKD-EPI)NonAf 62 (>60 ml/min/1.73 sqM) Glucose 109 H (74-99) mg/dL Plasma Lactic Acid Gavin 0.9 (0.7-2.0) mmol/L Calcium 9.4 (8.4-10.2) mg/dL Total Bilirubin 0.6 (0.2-1.3) mg/dL AST 32 (14-36) U/L ALT 24 (4-34) U/L Alkaline Phosphatase 58 (38-126) U/L C-Reactive Protein <0.5 (<1.0) mg/dL Total Protein 6.6 (6.3-8.2) g/dL Albumin 4.3 (3.5-5.0) g/dL Amylase 83 (30-110) U/L Lipase 178 (23-300) U/L Urine Color Urine Appearance (Clear) Urine pH (5.0-8.0) Ur Specific [place] (1.001-1.035) Urine Protein (Negative) Urine Glucose (UA) (Negative) Urine Ketones (Negative) Urine Blood (Negative) Urine Nitrite (Negative) Urine Bilirubin (Negative) Urine Urobilinogen (<2.0) mg/dL Ur Leukocyte Esterase (Negative) Urine RBC (0-5) /hpf Urine WBC (0-5) /hpf Ur Squamous Epith Cells (0-4) /hpf 09/11/24 Range/Units 04:44 WBC (3.8-10.6) k/uL RBC (3.80-5.40) m/uL Hgb (11.4-16.0) gm/dL Hct (34.0-46.0) % MCV (80.0-100.0) fL MCH (25.0-35.0) pg MCHC (31.0-37.0) g/dL RDW (11.5-15.5) % Plt Count (150-450) k/uL MPV Neutrophils % % Lymphocytes % % Monocytes % % Eosinophils % % Basophils % % Neutrophils # (1.3-7.7) k/uL Lymphocytes # (1.0-4.8) k/uL Monocytes # (0-1.0) k/uL Eosinophils # (0-0.7) k/uL Basophils # (0-0.2) k/uL Sodium (137-145) mmol/L Potassium (3.5-5.1) mmol/L Chloride (98-107) mmol/L Carbon Dioxide (22-30) mmol/L Anion Gap mmol/L BUN (7-17) mg/dL Creatinine (0.52-1.04) mg/dL Est GFR (CKD-EPI)AfAm (>60 ml/min/1.73 sqM) Est GFR (CKD-EPI)NonAf (>60 ml/min/1.73 sqM) Glucose (74-99) mg/dL Plasma Lactic Acid Gavin (0.7-2.0) mmol/L Calcium (8.4-10.2) mg/dL Total Bilirubin (0.2-1.3) mg/dL AST (14-36) U/L ALT (4-34) U/L Alkaline Phosphatase (38-126) U/L C-Reactive Protein (<1.0) mg/dL Total Protein (6.3-8.2) g/dL Albumin (3.5-5.0) g/dL Amylase (30-110) U/L Lipase (23-300) U/L Urine Color Colorless Urine Appearance Clear (Clear) Urine pH 6.0 (5.0-8.0) Ur Specific [place] 1.014 (1.001-1.035) Urine Protein Negative (Negative) Urine Glucose (UA) Negative (Negative) Urine Ketones Negative (Negative) Urine Blood Negative (Negative) Urine Nitrite Negative (Negative) Urine Bilirubin Negative (Negative) Urine Urobilinogen <2.0 (<2.0) mg/dL Ur Leukocyte Esterase Moderate H (Negative) Urine RBC 2 (0-5) /hpf Urine WBC 4 (0-5) /hpf Ur Squamous Epith Cells <1 (0-4) /hpf Disposition Clinical Impression: Abdominal pain Disposition: HOME SELF-CARE Condition: Good Instructions (If sedation given, give patient instructions): Abdominal Pain (ED) Prescriptions: Dicyclomine [Bentyl] 20 mg PO QID #15 tablet Is patient prescribed a controlled substance at d/c from ED?: No Referrals: Ijeoma Alfredo [Primary Care Provider] - 1-2 days
[2024-09-11] MEDS: PEG 3350 (236 GM/BTL) + LYTES 4,000 ML BOTTLE PO ONE (06:16)
[2024-09-11 06:23] VITALS: BP 165/81; PULSE 61; RESP 18; TEMP 98.4
== END 2024-09-11 06:28 | disposition home or self-care (01) ==
LOC: EC 04:07
DX: R10.31 Right lower quadrant pain (principal); Z87.891 Personal history of nicotine dependence; Z88.5 Allergy status to narcotic agent
CPT/HCPCS: 36415; 80053; 82150; 83605; 83690; 85025; 86140; 81001; 99284; 96372; J0500